=== PATIENT | female | born 1990 | race Caucasian/White ===

== ENCOUNTER 2016-11-20 06:57 | Inpatient (IN) | payer OTHER ==
[2016-11-13 13:09] VITALS: BMI 49.0
--- NOTE | 2016-11-13 13:32 | PAT Medication Instructions ---
Service Date Nov 13, 2016. Current Home Medication List Cholecalciferol (Vitamin D3), 1 TAB PO QAM Citalopram Hydrobromide (Citalopram Hydrobromide), 1 TAB PO HS Insulin Aspart (Novolog), 16 UNITS SQ BREAKFAST AND LUNCH Insulin Aspart (Novolog), 14 UNITS SQ DINNER TIME Insulin Human NPH (Novolin N), 40 UNITS SQ QAM Insulin Human NPH (Novolin N), 18 UNITS SQ HS Metformin Hcl (Glucophage), 1,000 MG PO BID Vit W/ Ferrous Fumara (), 2 TABS PO QAM Medication Instructions For Your Scheduled Surgery - Hold the following medications 48 hours prior to surgery: Metformin Hcl (Glucophage), 1,000 MG PO BID - Hold the following medications the morning of surgery: Vit W/ Ferrous Fumara (), 2 TABS PO QAM Insulin Aspart (Novolog), 16 UNITS SQ BREAKFAST Cholecalciferol (Vitamin D3), 1 TAB PO QAM - Take the following medications as scheduled the night before surgery: Insulin Human NPH (Novolin N), 18 UNITS SQ HS Insulin Aspart (Novolog), 16 UNITS SQ BREAKFAST AND LUNCH Insulin Aspart (Novolog), 14 UNITS SQ DINNER TIME Citalopram Hydrobromide (Citalopram Hydrobromide), 1 TAB PO HS - For Insulin Dependent Diabetic patients: Test blood sugar A.M. of surgery. - If Blood sugar greater than 150, take half of your regular dose of: Insulin Human NPH (Novolin N), take 20 units - If Blood sugar less than 150, do not take any: Insulin Human NPH ( Novolin N) If you have any questions please call us at [phone] (Izabel Negron PA-C ) or [phone] or [phone]
[2016-11-13 14:42] LABS: BASO % 0.3 %; BASO ABS # 0.03 K/uL (0-0.2); COMPLETE YES; EOS % 0.9 %; HEMATOCRIT 35.6 % (37-47); IG% 0.6 %; LYMPH % 17.7 %; LYMPH ABS # 1.84 K/uL (1.2-3.4); MEAN CELL VOLUME 88.6 fL (80-100); MEAN CORPUSCULAR HEMOGLOBIN 29.1 pg (25-34); MEAN CORPUSCULAR HGB CONC 32.9 g/dl (32-36); MEAN PLATELET VOLUME 9.6 fL (7.4-10.4); MONO % 5.2 %; NEUT % 75.3 %; PLATELET COUNT 209 K/uL (130-400); RED BLOOD COUNT 4.02 M/uL (4.2-5.4)
[2016-11-13 15:00] LABS: BUN/CREATININE RATIO 12.3 (10-20); CALCIUM 8.8 mg/dl (8.5-10.1); CREATININE 0.67 mg/dl (0.60-1.20); POTASSIUM 4.2 mmol/L (3.5-5.1)
[2016-11-20] VITALS (9 sets, daily range): BP systolic 127–131; BP diastolic 82–87; PULSE 66–92; TEMP 36.8–37.1; O2SAT 98–100; Ht 160 cm; Wt 125.5 kg
[~2016-11-20] VITALS: Ht 160 cm; Wt 125.5 kg
[~2016-11-20 06:57] MED LIST: CEFAZOLIN IV 3,000 MG in DEXTROSE 5% 50ML IV SCH; CHOL1000 PO; CITA20TA4 PO; CITRIC ACID/SODIUM CITRATE 15 ML UDC PO SCH; GLC/500 PO; LACTATED RINGER'S 1000ML 1,000 ML IV SCH; NVLG SQ; NVLNI SQ; PREN1TAB29 PO
[2016-11-20] MEDS ORDERED: CITA20TA9 PO (09:14)
--- NOTE | 2016-11-20 09:15 | History & Physical Bridge Note ---
H&P Re-Evaluation Bridge Note: I have examined the patient, reviewed the History & Physical and in the interval since the performance of the History & Physical I have noted the following changes of clinical significance: No changes noted
[2016-11-20 09:35] LABS: BASO % 0.2 %; BASO ABS # 0.02 K/uL (0-0.2); EOS % 0.6 %; IG% 0.7 %; LYMPH % 19.6 %; LYMPH ABS # 1.62 K/uL (1.2-3.4); MEAN CELL VOLUME 88.2 fL (80-100); MEAN CORPUSCULAR HEMOGLOBIN 29.7 pg (25-34); MEAN PLATELET VOLUME 9.8 fL (7.4-10.4); MONO % 7.9 %; PLATELET COUNT 202 K/uL (130-400); RED BLOOD COUNT 3.97 M/uL (4.2-5.4); WHITE BLOOD COUNT 8.28 K/uL (4.8-10.8)
[2016-11-20 09:39] LABS: COMPLETE YES; MEAN CORPUSCULAR HGB CONC 33.7 g/dl (32-36)
[2016-11-20] MEDS ORDERED: MoRPHine SULFATE PF 1 MG/ML 10 ML AMP/VIAL ONE (10:05)
[2016-11-20] MEDS ORDERED: OXYTOCIN INJ 10 UNITS/ML VIAL ONE (10:19)
[2016-11-20] MEDS ORDERED: EpHEDrine SULFATE INJ 50 MG/ML AMP ONE (10:19)
[2016-11-20] MEDS ORDERED: NALOXONE HCL INJ 0.08 MG in SYRINGE 1.8 ML IV PRN (10:49)
[2016-11-20] MEDS ORDERED: NALOXONE HCL INJ 1 MG in SODIUM CHLORIDE 0.9% 1000ML 1,000 ML IV PRN (10:49)
[2016-11-20] MEDS ORDERED: SODIUM CHLORIDE 0.9% 1000ML 1,000 ML IV PRN (10:49)
[2016-11-20] MEDS ORDERED: LACTATED RINGER'S 1000ML 500 ML IV PRN (10:49)
[2016-11-20] MEDS ORDERED: DiphenhydrAMINE HCL 50 MG/ML VIAL IV PRN ×2 (11:00)
[2016-11-20] MEDS ORDERED: MoRPHine SULFATE 2 MG/ML CARP IV PRN (11:00)
[2016-11-20] MEDS ORDERED: FENTANYL CITRATE INJ 50 MCG/1 ML 2 ML VIAL IV PRN (11:00)
[2016-11-20] MEDS ORDERED: ONDANSETRON INJ 2 MG/ML 2 ML VIAL IV PRN ×2 (11:00)
[2016-11-20] MEDS ORDERED: NO NARCOTICS OR SEDATIVES SCH (11:00)
[2016-11-20] MEDS ORDERED: ATROPINE SULFATE 0.1 MG/ML 5ML SYR IV PRN (11:00)
[2016-11-20] MEDS ORDERED: MoRPHine SULFATE PF 1 MG/ML 10 ML AMP/VIAL EPI PRN (11:00)
[2016-11-20] MEDS ORDERED: LABETALOL HCL IV 5 MG/ML 20ML IV PRN (11:00)
[2016-11-20] MEDS ORDERED: NALOXONE HCL 0.4 MG/1 ML VIAL/CARP IV PRN (11:00)
[2016-11-20] MEDS ORDERED: HYDROmorphone INJ 1 MG/ML SYR IV PRN (11:00)
[2016-11-20] MEDS ORDERED: EpHEDrine SULFATE INJ 50 MG/ML AMP IV PRN ×2 (11:00)
[2016-11-20] MEDS ORDERED: MEPERIDINE HCL 25 MG/ML CARP IV PRN ×2 (11:00)
[2016-11-20] MEDS ORDERED: NALBUPHINE HCL INJ 10 MG/ML AMP IV PRN (11:00)
[2016-11-20] MEDS ORDERED: PHENYLEPHRINE HCL INJ 10 MG/ML VIAL ONE (11:06)
[2016-11-20] MEDS ORDERED: LACTATED RINGER'S 1000ML 1,000 ML IV SCH (11:21)
--- NOTE | 2016-11-20 11:28 | [facility] Post Operative Brief Note ---
Immediate Operative Summary Operative Date Nov 20, 2016. Pre-Operative Diagnosis Term , hx prior C/S requesting repeat, Type II DM insulin controlled, Class III obesity Post-Operative Diagnosis Same, Repeat Elective Caesarean Section Procedure(s) Performed Repeat Low Transverse Caesarean Section for living female child at [address] Paz Pre K Teacher Surgeon(s) Dr. Zhou Estimated Blood Loss 600 ML Findings Patient delivered a viable female infant in the vertex position at 1030 on via repeat LTCS. APGARs were 8 at 1 minute and 9 at 5 minutes. Please see pediatricians notes for further baby assessment. Cord blood obtained. An intact placenta with a 3 VC delivered manually at 1031. Normal uterus and bilateral tubes and ovaries noted. Both patient and baby tolerated the surgery well and were sent to recovery with stable vital signs. Fluids (cc crystalloids) 1200 Specimens PLACENTA- EXAM CORD BLOOD Drains Gilmore to gravity Anesthesia Spinal Complication(s) None Disposition L&D
[2016-11-20] MEDS ORDERED: MAGNESIUM HYDROXIDE SUSP 30 ML UDC PO PRN (11:30)
[2016-11-20] MEDS ORDERED: SENNA 8.6 MG TAB PO PRN (11:30)
[2016-11-20] MEDS ORDERED: BENZOCAINE 20% AER SPR 82.5 GM CAN EXT PRN (11:30)
[2016-11-20] MEDS ORDERED: LANOLIN OINT EXT PRN ×2 (11:30)
[2016-11-20] MEDS ORDERED: HYDROCORTISONE ACETATE 25 MG SUPP PR PRN (11:30)
[2016-11-20] MEDS ORDERED: SUPERCREAM 0.870 % 15GM JAR EXT PRN (11:30)
[2016-11-20] MEDS ORDERED: DIPHTHERIA/TETANUS/PERTUSSIS 0.5 ML SYR/VIAL IM. ONE (11:30)
[2016-11-20] MEDS: OXYTOCIN INJ 30 UNITS in LACTATED RINGER'S 1000ML 1,000 ML IV SCH ×2 (13:36→22:02)
--- NOTE | 2016-11-20 14:19 | OPERATIVE REPORT ---
DATE OF OPERATION: 11/20/2016 PREOPERATIVE DIAGNOSES: 1. Intrauterine term . 2. History of prior section, requesting repeat section. 3. Type 2 diabetes, insulin controlled. 4. Class 3 obesity. POSTOPERATIVE DIAGNOSES: Same. OPERATIVE PROCEDURE: Repeat low transverse section. SURGEON: Dr. Pasquale Paz. MAINTENANCE TECHNICIAN: Dr. Zhou. ANESTHESIA: Spinal. ESTIMATED BLOOD LOSS: 600 mL. IV FLUIDS: 1200 mL crystalloids. SPECIMENS: Placenta and cord blood. DRAINS: Gilmore to gravity. COMPLICATIONS: None. DISPOSITION: Labor and delivery. OPERATIVE FINDINGS: The patient delivered a viable female infant in the vertex position at 10:30 a.m. on 11/20/2016 via repeat low transverse section. Apgars were 8 at 1 minute and 9 at 5 minutes. Please see optical glass wet inspector's notes for further baby assessment. Cord blood was then obtained and an intact placenta with 3-vessel cord was delivered manually at 10:31. Normal uterus and bilateral tubes and ovaries were noted. Both the patient and baby tolerated the surgery well and were sent to recovery with stable vital signs. OPERATIVE PROCEDURE IN DETAIL: The patient was taken to the operating room, where spinal anesthesia was administered. The patient was then immediately placed in dorsal supine position with a left lateral tilt and was prepped and draped in a manner appropriate for the procedure. Once anesthesia was found to be adequate, a Pfannenstiel skin incision was made over the previous surgical scar and was carried down through to a layer of the rectus fascia. Fascia was nicked in the midline and extended bilaterally with curved Cottrell scissors. The superior aspect of the fascial incision was grasped with Roz clamps, elevated, and the rectus muscles were dissected off with the use of the curved Cottrell scissors and electrocautery. Likewise, this inferior aspect of the fascial incision was grasped with Roz clamps, elevated, and the rectus muscles were dissected off with the use of the curved Cottrell scissors. The rectus muscles were in midline. Peritoneum was entered bluntly. The peritoneal incision was then extended cephalocaudally with gentle traction. An Kishor retractor was then placed within the abdomen. The bladder blade was then placed within the abdomen. The vesicouterine peritoneum was identified and a bladder flap was created with Metzenbaum scissors and digital traction. The bladder flap was then reincorporated beneath the Susan blade. A transverse incision was then made on the uterus and extended bilaterally with bandage scissors. The membranes were then ruptured noting clear amniotic fluid. The baby was then delivered through the incision without complications. Baby was bulb suctioned at delivery. Cord was clamped x2 and cut. Baby was then immediately handed to an awaiting optical glass wet inspector for further evaluation and management. Cord blood was then obtained and an intact placenta with a 3-vessel cord was delivered through the incision and sent to pathology. The uterus was then exteriorized and wrapped in moist laparotomy sponge. The uterus was then cleared of any trailing membrane and debris with a laparotomy sponge. The uterine incision was then grasped with ring forceps at 4 quadrants and was closed with 0 Vicryl suture in continuous locking fashion. A second 0 Vicryl suture was used in imbricating fashion to ensure hemostasis. Any residual bleeding was suture ligated with 0 Vicryl suture in a [id number] interrupted fashion. The posterior cul-de-sac was then irrigated with warm saline solution. The uterus was then placed back within its normal anatomic position within the abdomen. Inspection of the uterine incision was again noted to be hemostatic. The bladder flap was reapproximated to the lower uterine segment with 3-0 Vicryl suture in continuous running fashion. Seprafilm was placed over the incision and along the fundus of the uterus. All instruments were then removed from the abdomen. The Kishor retractor was also removed. The peritoneum was then grasped with Carine clamps and 4 quadrants and was closed with 2-0 Vicryl suture in continuous running fashion. The rectus muscles were reapproximated with 0 Vicryl suture in a [id number] interrupted fashion. The rectus fascia was then closed with 0 Vicryl suture in continuous running fashion. Subcutaneous tissue was reapproximated with 2-0 plain suture in a continuous running fashion. Skin was then closed with ben. Excellent hemostasis was noted through all tissue layers. All sponge and instrument counts were found to be correct x2. Both the patient and baby tolerated the surgery well and were sent to recovery with stable vital signs. I attest to the content of the Intraoperative Record and any orders documented therein. Any exceptio ns are noted below.
--- NOTE | 2016-11-20 15:46 | Anesthesiology Progress Note ---
Anesthesia Post Op Note Date & Time Nov 20, 2016 at 15:44 Vital Signs Pain Intensity: 3.5 Vital Signs Past 12 Hours Date Time Temp Pulse Resp B/P Pulse Ox O2 Delivery O2 Flow Rate FiO2 11/20/16 14:45 98 Room Air 11/20/16 14:45 36.8 67 18 131/84 98 Room Air 11/20/16 14:45 18 98 Notes Mental Status: alert / awake / arousable, participated in evaluation Pt Amnestic to Procedure: Yes Nausea / Vomiting: adequately controlled Pain: adequately controlled Airway Patency, RR, SpO2: stable & adequate BP & HR: stable & adequate Hydration State: stable & adequate Neuraxial Anesthesia: was administered, sensory block is resolving Anesthetic Complications: no major complications apparent
[2016-11-20] MEDS: KETOROLAC TROMETHAMINE 30 MG/ML VIAL IV. PRN ×2 (16:31→22:08)
[2016-11-20] MEDS: METFORMIN HCL 500 MG TAB PO SCH (17:23)
[2016-11-20] MEDS: SIMETHICONE 80 MG CHEW PO SCH ×2 (17:23→19:53)
[2016-11-20] MEDS: DOCUSATE SODIUM 100 MG CAP PO SCH (19:53)
[2016-11-20] MEDS: CITALOPRAM 20 MG TAB PO SCH (22:02)
[2016-11-21] VITALS (7 sets, daily range): BP systolic 120–133; BP diastolic 76–84; PULSE 88–98; TEMP 36.4–36.9; O2SAT 96–100
[2016-11-21] MEDS ORDERED: ZOLPIDEM TARTRATE 5 MG TAB PO PRN (02:15)
[2016-11-21] MEDS ORDERED: ONDANSETRON INJ 2 MG/ML 2 ML VIAL IV PRN (02:15)
[2016-11-21] MEDS ORDERED: KETOROLAC TROMETHAMINE 30 MG/ML VIAL IV. PRN (02:15)
[2016-11-21] MEDS ORDERED: DC INTRASPINAL MORPHINE ONE (02:15)
[2016-11-21] MEDS: IBUPROFEN 600 MG TAB PO PRN ×4 (03:50→22:49)
[2016-11-21] MEDS: OXYCODONE/ACETAMINOPHEN 5-325 TAB PO PRN ×5 (03:51→21:32)
[2016-11-21 06:02] LABS: BASO % 0.2 %; BASO ABS # 0.02 K/uL (0-0.2); COMPLETE YES; EOS % 1.6 %; HEMATOCRIT 26.9 % (37-47); IG% 0.3 %; LYMPH % 16.1 %; LYMPH ABS # 1.42 K/uL (1.2-3.4); MEAN CELL VOLUME 87.9 fL (80-100); MEAN CORPUSCULAR HEMOGLOBIN 29.4 pg (25-34); MEAN CORPUSCULAR HGB CONC 33.5 g/dl (32-36); MEAN PLATELET VOLUME 9.1 fL (7.4-10.4); MONO % 8.9 %; NEUT % 72.9 %; PLATELET COUNT 149 K/uL (130-400); RED BLOOD COUNT 3.06 M/uL (4.2-5.4); WHITE BLOOD COUNT 8.84 K/uL (4.8-10.8)
[2016-11-21] MEDS ORDERED: FERROUS SULFATE 325 MG TAB PO SCH (08:00)
[2016-11-21] MEDS ORDERED: CITALOPRAM 20 MG TAB PO SCH (08:00)
[2016-11-21] MEDS: METFORMIN HCL 500 MG TAB PO SCH ×2 (08:52→17:24)
[2016-11-21] MEDS: PRENATAL VITAMIN TAB PO SCH (08:53)
[2016-11-21] MEDS: SIMETHICONE 80 MG CHEW PO SCH ×4 (08:54→20:25)
[2016-11-21] MEDS: DOCUSATE SODIUM 100 MG CAP PO SCH ×2 (08:54→20:26)
--- NOTE | 2016-11-21 09:21 | OB/GYN Progress Note ---
PETROGRAPHER Progress Note Date of Service: Nov 21, 2016. Patient is seen and examined. She feels well, no complaints. Pain is under control with oral meds. Ambulating without dizziness Voiding without difficulty Tolerating regular diet with out N&V Flatus + BM NEG Bleeding is minimal No fever/ chills/ CP/ SOB/ N&V/ Leg pain Breast feeding without problems Date Time Temp Pulse Resp B/P Pulse Ox O2 Delivery O2 Flow Rate FiO2 11/21/16 08:00 99 Room Air 11/21/16 07:00 36.4 98 20 133/84 99 Room Air 11/21/16 03:30 36.9 88 16 120/76 100 Room Air 11/21/16 02:15 16 97 11/21/16 01:30 16 98 11/21/16 00:30 16 100 11/20/16 23:30 18 100 11/20/16 23:30 100 Room Air 11/20/16 23:30 37.1 92 18 127/82 100 Room Air 11/20/16 22:30 18 98 11/20/16 21:30 18 100 11/20/16 20:30 20 99 11/20/16 19:30 36.9 82 20 131/82 100 Room Air 11/20/16 19:30 20 100 11/20/16 17:05 18 99 11/20/16 16:25 18 100 11/20/16 16:25 36.8 70 20 129/87 100 Room Air 11/20/16 15:25 20 100 11/20/16 15:25 36.8 66 20 128/85 100 Room Air 11/20/16 14:45 98 Room Air 11/20/16 14:45 36.8 67 18 131/84 98 Room Air 11/20/16 14:45 18 98 Test 11/13/16 13:38 11/20/16 07:21 11/20/16 17:07 11/20/16 19:37 White Blood Count 10.40 8.28 Red Blood Count 4.02 L 3.97 L Hemoglobin 11.7 L 11.8 L Hematocrit 35.6 L 35.0 L Mean Corpuscular Volume 88.6 88.2 Mean Corpuscular Hemoglobin 29.1 29.7 Mean Corpuscular Hemoglobin Concent 32.9 33.7 Platelet Count 209 202 Mean Platelet Volume 9.6 9.8 Neutrophils (%) (Auto) 75.3 71.0 Lymphocytes (%) (Auto) 17.7 19.6 Monocytes (%) (Auto) 5.2 7.9 Eosinophils (%) (Auto) 0.9 0.6 Basophils (%) (Auto) 0.3 0.2 Neutrophils # (Auto) 7.84 H 5.88 Lymphocytes # (Auto) 1.84 1.62 Monocytes # (Auto) 0.54 0.65 H Eosinophils # (Auto) 0.09 0.05 Basophils # (Auto) 0.03 0.02 RDW Standard Deviation 49.8 H 49.3 H RDW Coefficient of Variation 15.4 H 15.3 H Immature Granulocyte % (Auto) 0.6 0.7 Immature Granulocyte # (Auto) 0.06 H 0.06 H Sodium Level 138 Potassium Level 4.2 Chloride Level 104 Carbon Dioxide Level 27 Anion Gap 7.0 Blood Urea Nitrogen 8 Creatinine 0.67 Est Creatinine Clear Calc Drug Dose 164.9 Estimated GFR () 140.6 Estimated GFR (Non- 121.3 BUN/Creatinine Ratio 12.3 Random Glucose 113 H Calcium Level 8.8 POC Glucose 85 106 H Test 11/21/16 05:48 White Blood Count 8.84 Red Blood Count 3.06 L Hemoglobin 9.0 L Hematocrit 26.9 L Mean Corpuscular Volume 87.9 Mean Corpuscular Hemoglobin 29.4 Mean Corpuscular Hemoglobin Concent 33.5 Platelet Count 149 Mean Platelet Volume 9.1 Neutrophils (%) (Auto) 72.9 Lymphocytes (%) (Auto) 16.1 Monocytes (%) (Auto) 8.9 Eosinophils (%) (Auto) 1.6 Basophils (%) (Auto) 0.2 Neutrophils # (Auto) 6.44 Lymphocytes # (Auto) 1.42 Monocytes # (Auto) 0.79 H Eosinophils # (Auto) 0.14 Basophils # (Auto) 0.02 RDW Standard Deviation 49.2 H RDW Coefficient of Variation 15.5 H Immature Granulocyte % (Auto) 0.3 Immature Granulocyte # (Auto) 0.03 H PE: General: Alert, orientedx3, NAD CVS: S1S2 RRR Lungs; CTAB Abd: soft, NT, fundus firm, below Umbilicus, obese Dressing: Clean, dry, intact Perineum intact, Lochia rubra minimal Ext; NT, no edema AP: 26 yo s/p C Section, pod# 1 VSS Afebrile doing well FS today Continue routine postop care Encourage ambulation, PO intake, ADA diet All questions were answered
[2016-11-21] MEDS: FERROUS SULFATE 325 MG TAB PO SCH (17:21)
[2016-11-21] MEDS: CITALOPRAM 20 MG TAB PO SCH (21:33)
[2016-11-21] MEDS ORDERED: BISACODYL 5 MG TABEC PO ONE (22:00)
[2016-11-22 00:55] VITALS: BP 144/86; PULSE 118; TEMP 37
[2016-11-22] MEDS: OXYCODONE/ACETAMINOPHEN 5-325 TAB PO PRN ×5 (01:29→20:22)
[2016-11-22 07:30] VITALS: BP 145/84; PULSE 90; TEMP 36.6; O2SAT 98
--- NOTE | 2016-11-22 07:33 | OB/GYN Progress Note ---
CHEMICAL INSPECTOR Progress Note Date of Service Nov 22, 2016. Subjective conversation w/ patient, physical exam Ambulation: ambulating normally Voiding: no voiding problems Passing Gas: Yes Diet Tolerance: Regular Diet Lochia: Small Feeding Type: Breast Feeding Pain: 5/10 Notes: Doing well, no concerns. Pain well controlled. Ambulating without difficulty. Tolerating regular diet, +flatus, -BM. Objective Vital Signs Date Time Temp Pulse Resp B/P Pulse Ox O2 Delivery O2 Flow Rate FiO2 11/22/16 00:55 37.0 118 18 144/86 Room Air 11/22/16 00:55 Room Air 11/21/16 15:55 36.6 90 20 132/83 96 Room Air 11/21/16 15:55 96 Room Air 11/21/16 15:55 36.6 90 20 132/83 96 Room Air 11/21/16 08:00 99 Room Air Physical Exam General Appearance: WELL-APPEARING Respiratory/Chest: chest non-tender, lungs clear Cardiovascular: regular rate, rhythm Abdomen: normal bowel sounds, soft Fundus: Firm Incision Description: Clean, Dry & Intact Extremities: normal range of motion, non-tender, no calf tenderness Laboratory Results Last 24 Hours Test 11/21/16 10:14 11/21/16 12:01 11/21/16 16:54 11/21/16 21:39 Bedside Glucose 200 mg/dl 101 mg/dl 121 mg/dl 159 mg/dl Test 11/22/16 05:51 Hemoglobin 8.4 g/dL Hematocrit 25.0 % Assessment and Plan Post-Op Day Number: 2 Continue Routine Care: -Continue routine postop care -Anticipate D/C home tomorrow AM
[2016-11-22] MEDS: SIMETHICONE 80 MG CHEW PO SCH ×4 (07:51→20:03)
[2016-11-22] MEDS: FERROUS SULFATE 325 MG TAB PO SCH ×2 (07:51→17:45)
[2016-11-22] MEDS: DOCUSATE SODIUM 100 MG CAP PO SCH ×2 (07:51→20:03)
[2016-11-22] MEDS: PRENATAL VITAMIN TAB PO SCH (07:51)
[2016-11-22] MEDS: METFORMIN HCL 500 MG TAB PO SCH ×2 (07:51→17:46)
[2016-11-22] MEDS: IBUPROFEN 600 MG TAB PO PRN ×4 (07:52→20:23)
[2016-11-22] MEDS ORDERED: BISACODYL 10 MG SUPP PR PRN (11:30)
[2016-11-22 16:05] VITALS: BP 123/85; PULSE 90; TEMP 37.2; O2SAT 98
[2016-11-22] MEDS: CITALOPRAM 20 MG TAB PO SCH (22:07)
[2016-11-22 23:00] VITALS: BP 132/80; PULSE 73; TEMP 36.8
[2016-11-23] MEDS: IBUPROFEN 600 MG TAB PO PRN (05:56)
[2016-11-23] MEDS: OXYCODONE/ACETAMINOPHEN 5-325 TAB PO PRN (05:57)
[2016-11-23 07:05] LABS: HEMATOCRIT 25.5 % (37-47); MEAN CELL VOLUME 88.9 fL (80-100); MEAN CORPUSCULAR HEMOGLOBIN 28.9 pg (25-34); MEAN CORPUSCULAR HGB CONC 32.5 g/dl (32-36); PLATELET COUNT 187 K/uL (130-400); RED BLOOD COUNT 2.87 M/uL (4.2-5.4); WHITE BLOOD COUNT 7.56 K/uL (4.8-10.8)
[2016-11-23] MEDS: DOCUSATE SODIUM 100 MG CAP PO SCH (07:46)
[2016-11-23] MEDS: FERROUS SULFATE 325 MG TAB PO SCH (07:46)
[2016-11-23] MEDS: METFORMIN HCL 500 MG TAB PO SCH (07:47)
[2016-11-23] MEDS: PRENATAL VITAMIN TAB PO SCH (07:47)
[2016-11-23] MEDS: SIMETHICONE 80 MG CHEW PO SCH (07:47)
[2016-11-23 07:50] VITALS: BP 135/77; PULSE 91; TEMP 37.1; O2SAT 97
--- NOTE | 2016-11-23 09:21 | OB/GYN Progress Note ---
PURCHASER Progress Note Date of Service: Nov 23, 2016. Patient is seen and examined. She feels well, no complaints. Likes to go home. Pain is under control with oral meds. Ambulating without dizziness Voiding without difficulty Tolerating regular diet with out N&V Flatus + BM + Bleeding is minimal No fever/ chills/ CP/ SOB/ N&V/ Leg pain Breast feeding without problems Date Time Temp Pulse Resp B/P Pulse Ox O2 Delivery O2 Flow Rate FiO2 11/23/16 07:50 37.1 91 18 135/77 97 Room Air 11/23/16 07:50 97 Room Air 11/22/16 23:00 36.8 73 20 132/80 Room Air 11/22/16 23:00 Room Air 11/22/16 16:05 37.2 90 20 123/85 98 Room Air 11/22/16 16:05 98 Room Air Test 11/13/16 13:38 11/20/16 07:21 11/21/16 05:48 11/21/16 12:01 Immature Granulocyte % (Auto) 0.6 0.7 0.3 White Blood Count 10.40 8.28 8.84 Red Blood Count 4.02 L 3.97 L 3.06 L Hemoglobin 11.7 L 11.8 L 9.0 L Hematocrit 35.6 L 35.0 L 26.9 L Mean Corpuscular Volume 88.6 88.2 87.9 Mean Corpuscular Hemoglobin 29.1 29.7 29.4 Mean Corpuscular Hemoglobin Concent 32.9 33.7 33.5 Platelet Count 209 202 149 Mean Platelet Volume 9.6 9.8 9.1 Neutrophils (%) (Auto) 75.3 71.0 72.9 Lymphocytes (%) (Auto) 17.7 19.6 16.1 Monocytes (%) (Auto) 5.2 7.9 8.9 Eosinophils (%) (Auto) 0.9 0.6 1.6 Basophils (%) (Auto) 0.3 0.2 0.2 Neutrophils # (Auto) 7.84 H 5.88 6.44 Lymphocytes # (Auto) 1.84 1.62 1.42 Monocytes # (Auto) 0.54 0.65 H 0.79 H Eosinophils # (Auto) 0.09 0.05 0.14 Basophils # (Auto) 0.03 0.02 0.02 Immature Granulocyte # (Auto) 0.06 H 0.06 H 0.03 H Sodium Level 138 Potassium Level 4.2 Chloride Level 104 Carbon Dioxide Level 27 Anion Gap 7.0 Blood Urea Nitrogen 8 Creatinine 0.67 Est Creatinine Clear Calc Drug Dose 164.9 Estimated GFR () 140.6 Estimated GFR (Non- 121.3 BUN/Creatinine Ratio 12.3 Random Glucose 113 H Calcium Level 8.8 RDW Standard Deviation 49.3 H 49.2 H RDW Coefficient of Variation 15.3 H 15.5 H POC Glucose 101 H Test 11/21/16 16:54 11/21/16 21:39 11/22/16 05:51 11/23/16 06:22 POC Glucose 121 H 159 H Hemoglobin 8.4 L 8.3 L Hematocrit 25.0 L 25.5 L White Blood Count 7.56 Red Blood Count 2.87 L Mean Corpuscular Volume 88.9 Mean Corpuscular Hemoglobin 28.9 Mean Corpuscular Hemoglobin Concent 32.5 RDW Standard Deviation 50.7 H RDW Coefficient of Variation 15.7 H Platelet Count 187 Mean Platelet Volume 9.0 PE: General: Alert, orientedx3, NAD CVS: S1S2 RRR Lungs; CTAB Abd: soft, NT, fundus firm, below Umbilicus Incision: Clean, dry, intact Perineum intact, Lochia rubra minimal Ext; NT, no edema AP: 26 yo s/p RC Section, pod# 3 VSS Afebrile doing well Continue routine postop care Encourage ambulation, PO intake All questions were answered Instructions were given when to call D/C home , f/u in office
[2016-11-23] MEDS ORDERED: CLC100 PO (09:22)
[2016-11-23] MEDS ORDERED: FRRS300 PO (09:22)
[2016-11-23] MEDS ORDERED: OXYC-57 PO (09:22)
[2016-11-23] MEDS ORDERED: MTR600X PO (09:22)
--- NOTE | 2016-11-23 09:24 | Discharge Instructions ---
Discharge Instructions Date of Service Nov 23, 2016. Admission Reason for Admission: Term Discharge Discharge Diagnosis / Problem: Repeat Csection Discharge Goals Goal(s): Routine recovery after Medications Continue Dispensed Medications: lansinoh Activity Recommendations Activity Limitations: as noted below Lifting Limitations: no more than 5 pounds Exercise/Sports Limitations: until after follow-up appointment May Resume Sexual Activity: after follow-up appointment Shower/Bathe: keep incision dry Driving or Machine Use: ACTIVITY RECOMMENDATIONS: * Gradual return to full activity over the next 2-3 weeks. * No lifting - nothing heavier than baby over the next 2-3 weeks. * Do not engage in vigorous exercise, sexual activity or sports until cleared by your physician. * Do not drive or operate any motorized equipment until cleared by your physician. * You may shower/bathe daily. BREAST CARE: If you are not breast feeding: * Wear a supportive bra 24 hours a day for one to two weeks. * Avoid stimulating your breasts and nipples as much as possible during the first few weeks after delivery. * When taking a shower, have the warm water hit your back, not breasts. * When your breasts feel full, apply ice packs. Usually three to four times a day helps ease the discomfort. * Take a mild pain medication (Tylenol/Motrin) when you are uncomfortable. If breast feeding: * Use breast milk to lubricate nipples. Lansinoh cream may be used for sore nipples. You do not need to remove cream prior to breast feeding. If using a different brand of cream, check the label for directions regarding removal of cream prior to nursing. * Wear a supportive bra. * If having problems with breasts or breast feeding, call a freight traffic consultant or your health care provider. OVER THE COUNTER MEDICATION: * For discomfort or pain, you may use Acetaminophen (Tylenol), Ibuprofen (Advil ), or Naproxen (Aleve) following the package directions. * For constipation you may use Colace following the package directions. SPECIAL CARE INSTRUCTIONS: When you are discharged from the hospital, it is important for you to follow the instructions listed below: * During the first week at home, you should be able to care for yourself and your baby. In addition, the usual light household activities are encouraged. * Limit your activities to the way you feel. Do not try to clean the house or move furniture. Be sensible. * If you actively engage in sports and have done so up until the time of your delivery, you may resume these activities as soon as you feel able. This may take up to one month or even longer. Use good judgment. * Continue to take your vitamins for at least six weeks after the of your baby. * Your diet need not be limited unless you were on a special diet before your delivery. Breast-feeding mothers need around 2500 calories per day and at least 64-80 ounces of fluid per day (8 to 10 glasses). * You should eat foods from the four major food groups. Crash diets or fad diets are to be avoided. Eating lean meats, fresh fruits and vegetables, low-fat dairy products, high fiber foods and a regular exercise program, will help you get back to your pre- weight without putting your health at risk. * Constipation is sometimes a problem after delivery. Take a mild laxative as needed. If breast feeding, Milk of Magnesia is acceptable to use. You may use a suppository or Fleets enema if no episiotomy. * A daily shower or tub bath is suggested. Be sure to thoroughly and gently dry the perineum. * A bloody vaginal discharge will usually continue until around four weeks post . A small amount of bleeding may continue for as long as six weeks. Vaginal discharge changes from the bright red bleeding after delivery to pink then brownish and finally yellowish-pink before becoming white and disappearing. * Bleeding may increase with activity. Your first period may come in 4-8 weeks. If you are breast feeding, your period may be delayed even longer. * [place] (sex) can begin whenever both you and your partner feel comfortable and do not have any form of genital infection. It is recommended that you wait at least six weeks for internal and external healing to occur. If you have questions, please talk to your health care practitioner. A condom should be used to prevent infection and . * Foreplay, gentle intercourse and lubrication is very important the first several times to prevent pain. A water-based lubricant such as K-Y jelly or Astroglide may be used. * Tampons and/or Douching should be avoided until after six weeks check-up. * If you have RH negative blood and your baby is RH positive, you will receive RHOGAM by injection prior to discharge. The nurse will give you a card to keep with you that has the date and place that you received RHOGAM after delivery. * During your care, you had a Rubella screen done to check for the presence of rubella antibodies in your blood. If your test was negative, you will receive a Rubella vaccine prior to discharge. This vaccine may cause a fever, soreness at the injection site and flu-like symptoms. If these symptoms persist, notify your health care practitioner. is not advised for three months after a Rubella vaccine. * Verbalizes understanding of car seat law as reviewed with patient nursing. * Car Seat hand-out given and reviewed with patient by nursing. * Shaken baby information reviewed with patient by nursing. Call you doctor if: * Heavy bleeding (saturating several pads an hour) or passing clots the size of your fist. * A fever >101 degrees F (38.3 degrees C) on two occasions four hours apart and /or chills. * Unusual pain in the pelvic or vaginal areas. Pain should improve each day . * Call the doctor for any increased redness, drainage or swelling around the incision and any pain unrelieved by prescribed pain medication. * Any signs or symptoms of phlebitis (possible blood clots forming in the veins ): leg pain, warm, red or swollen area on leg. * "Baby Blues" lasting longer than two weeks. If you have any questions or concerns, call your health care practitioner at . FOLLOW-UP VISIT: * Incision check (staple removal) in 1 week. Please call doctor's office at to set up appointment. * Please call the office at to schedule a 6 week examination. It is important you keep this appointment. * It is important for you to make arrangements for either yearly or twice yearly check-ups thereafter. . Current Hospital Diet Patient's current hospital diet: Diabetes Type 2 Diet Discharge Diet Recommended Diet: Diabetes Type 2 Diet Procedures Procedures Performed: Repeat Low Transverse Caesarean Section for living female child at 1030 Pending Studies Studies pending at discharge: no Medical Emergencies . Who to Call and When: Medical Emergencies: If at any time you feel your situation is an emergency, please call 911 immediately. . Non-Emergent Contact Non-Emergency issues call your: Primary Care Provider (with glucose levels ), Surgeon Call Non-Emergent contact if: temperature is above 100.5, your pain is not controlled, your pain is worsening, wound has increased drainage, wound has increased redness, wound has increased pain, you have any medication questions . . "Provider Documentation" section prepared by Richi Mckoy. . VTE Core Measure Inpt VTE Proph given/why not?: Treatment not indicated
[2016-11-23] MEDS ORDERED: MISC-696 (09:25)
[2016-11-23 11:30] VITALS: BP_DIAS 77; PULSE 91; TEMP 37.1
== END 2016-11-23 11:50 | disposition home or self-care (01) | DRG 765 ==
LOC: C.LD 06:57 → EDSTATUS 07:30 → C.OBG 14:23
PROVIDERS: ADMIT Obstetrics & Gynecology; ATTEND Obstetrics & Gynecology
PROC: 10D00Z1 Extraction of Products of Conception, Low, Open Approach (ICD-10-PCS; principal; 2016-11-20 09:00)
DX: O34.211 Maternal care for low transverse scar from previous cesarean delivery (principal); O24.12 Pre-existing type 2 diabetes mellitus, in childbirth; Z68.42 Body mass index [BMI] 45.0-49.9, adult; Z37.0 Single live birth; Z3A.39 39 weeks gestation of pregnancy; O99.214 Obesity complicating childbirth; O99.344 Other mental disorders complicating childbirth; F32.9 Major depressive disorder, single episode, unspecified; Z86.718 Personal history of other venous thrombosis and embolism; Z79.899 Other long term (current) drug therapy; Z87.891 Personal history of nicotine dependence; Z90.49 Acquired absence of other specified parts of digestive tract; Z82.49 Family history of ischemic heart disease and other diseases of the circulatory system; Z83.6 Family history of other diseases of the respiratory system; Z80.9 Family history of malignant neoplasm, unspecified; Z82.61 Family history of arthritis; Z82.5 Family history of asthma and other chronic lower respiratory diseases

== ENCOUNTER 2017-05-02 19:23 | Emergency (ER) | payer OTHER ==
[~2017-05-02] VITALS: Ht 160 cm; Wt 130.4 kg
[~2017-05-02 19:23] MED LIST changes: -CEFAZOLIN IV 3,000 MG in DEXTROSE 5% 50ML IV SCH; -CITRIC ACID/SODIUM CITRATE 15 ML UDC PO SCH; +CLC100 PO; +FRRS300 PO; -LACTATED RINGER'S 1000ML 1,000 ML IV SCH; +MISC-696; +MTR600X PO; -NVLG SQ; -NVLNI SQ; +OXYC-57 PO
[2017-05-02 19:27] VITALS: TEMP 36.7; Ht 160 cm; Wt 130.4 kg
[2017-05-02] MEDS ORDERED: CYCLOBENZAPRINE HCL 10 MG TAB PO STA (19:48)
[2017-05-02] MEDS ORDERED: IBUPROFEN 200 MG TAB PO STA (19:48)
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
[2017-05-02] MEDS ORDERED: CITA40TA4 PO (20:04)
--- NOTE | 2017-05-02 20:47 | DIAGNOSTIC IMAGING REPORT ---
LEFT HIP 2 VIEWS HISTORY: L hip pain bending over twisting motion COMPARISON: None. FINDINGS: No acute fracture or dislocation within the left hip. There are sacral screws and a left femoral intramedullary kin. The hardware appears intact. Old, healed left pubic ring fractures. An intrauterine device is identified in the pelvis. Extensive callus formation/heterotopic ossification at the mid shaft of left femur consistent with an old, healed fracture. Focal defect within the left lateral thigh consistent with an old injury. IMPRESSION: No acute fracture or dislocation within the left hip. Old posttraumatic and postoperative changes as described above. Electronically signed by: Billy Ca M.D. 05/02/2017 8:46 PM Dictated Date/Time: 05/02/2017 8:44 PM
--- NOTE | 2017-05-02 20:49 | DIAGNOSTIC IMAGING REPORT ---
LUMBAR SPINE 5 VIEWS HISTORY: lower back pain down L leg COMPARISON: None. FINDINGS: There is no fracture. No subluxation. Disc spaces are preserved. There are 2 sacral screws. The hardware appears intact. An intrauterine device is noted. There are surgical clips along the right side of the lower lumbar spine. IMPRESSION: No acute fracture or subluxation within the lumbar spine. Electronically signed by: Billy Ca M.D. 05/02/2017 8:48 PM Dictated Date/Time: 05/02/2017 8:46 PM
[2017-05-02] MEDS ORDERED: CYCL10TA6 PO (21:13)
[2017-05-02] MEDS ORDERED: TRAM-10 PO (21:13)
[2017-05-02 21:25] VITALS: BP 130/89; PULSE 66; O2SAT 99
--- NOTE | 2017-05-03 16:03 | Pharmacy Progress Note ---
ED Pharmacist Progress Note Date of Service: May 03, 2017. Keron called from [facility] wanted to know if provider is OK with giving cyclobenzaprine + tramadol + citalopram. Unfortunately Susana is not here. Pharmacist was afraid that cyclobenzaprine + celexa would lead to excessive QT prolongation. I consulted the reference [employer] however and cyclobenzaprine was not listed as a QT prolonging agent. I advised the pharmacist that I would be more concerned about serotonin syndrome w/ this drug combination. Advised to trauma counsellor the patient to use cyclobenzaprine sparingly and not in combo with the tramadol. Watch for s/s of serotonin syndrome ( confusion, sweating, increased HR, muscle spasms, etc). If one PRN medication is not relieving the symptoms, try the other.
== END 2017-05-02 21:29 | disposition home or self-care (01) ==
LOC: C.EDB 19:24 → C.EDD 21:29
DX: M54.16 Radiculopathy, lumbar region (principal); I10 Essential (primary) hypertension; E66.9 Obesity, unspecified; N83.209 Unspecified ovarian cyst, unspecified side; Z87.891 Personal history of nicotine dependence

== ENCOUNTER 2017-08-22 04:03 | Emergency (ER) | payer OTHER ==
[~2017-08-22] VITALS: Ht 160 cm; Wt 132.7 kg
[~2017-08-22 04:03] MED LIST changes: -CHOL1000 PO; -CITA20TA4 PO; +CITA40TA4 PO; -CLC100 PO; -FRRS300 PO; -GLC/500 PO; -MISC-696; -MTR600X PO; -OXYC-57 PO; -PREN1TAB29 PO
[2017-08-22 04:09] VITALS: BP 168/98; PULSE 69; TEMP 36.5; O2SAT 99; Ht 160 cm; Wt 132.7 kg
[2017-08-22] MEDS ORDERED: AMOXICILLIN 250 MG CAP PO STA (04:13)
[2017-08-22] MEDS ORDERED: IBUPROFEN 600 MG TAB PO STA (04:13)
[2017-08-22] MEDS ORDERED: AMOX500C3 PO (04:17)
--- NOTE | 2017-08-22 04:19 | EMERGENCY ROOM VISIT NOTE ---
History First contact with patient: 04:12 Chief Complaint: EAR PAIN Stated Complaint: REALLY BAD EAR ACHE,CONGESTION,PRESSURE History of Present Illness The patient is a 27 year old female who presents to the Emergency Room with complaints of complaints of cold symptoms for the past several days developed right ear pain tonight. Patient denies fever, chills, headache, neck stiffness , abdominal pain, chest pain, dyspnea, lightheadedness or dizziness. No recent antibiotics. Review of Systems See HPI for pertinent positives & negatives. A total of 10 systems reviewed and were otherwise negative. Past Medical/Surgical History Medical Problems: (1) Acute pharyngitis (2) Appendicitis (3) HTN (hypertension) (4) Hyperglycemia (5) OBESITY, NOS (6) Ovarian cyst (7) Post-op pain (8) Pre-diabetes (9) labor (10) TOBACCO USE DISORDER Surgical Problems: (1) Femur fracture, left (2) History of appendectomy (3) Pelvic fracture Family History Diabetes mellitus Hypertension Lung disease Social History Smoking Status: Never Smoker Alcohol Use: occasionally Drug Use: none Marital Status: in relationship Housing Status: lives with family Occupation Status: unemployed Current/Historical Medications Scheduled Amoxicillin (Amoxil), 500 MG PO TID Citalopram (Citalopram Hydrobromide), 40 MG PO DAILY Physical Exam Vital Signs Date Time Temp Pulse Resp B/P (MAP) Pulse Ox O2 Delivery O2 Flow Rate FiO2 08/22/17 04:09 36.5 69 18 168/98 99 Room Air Physical Exam VITALS: Vitals are noted on the nurse's note and reviewed by myself. Vital signs hypertensive GENERAL: Pleasant female, in no acute distress, nondiaphoretic, well-developed well-nourished. SKIN: The skin was without rashes, erythema, edema, or bruising. There is no tenting of the skin. Capillary reflex less than 2 seconds. HEAD: Normocephalic atraumatic. EARS: Right tympanic membrane bulging consistent with otitis media, left ear External auditory canals clear, with ear tube present without erythema or effusion, no mastoid tenderness bilaterally. EYES: Pupils equal round and reactive to light and accommodation. Conjunctivae without injection, sclerae without icterus. Extraocular movements intact. NOSE: Patent, turbinates without inflammation or discharge. No sinus tenderness. MOUTH: Mucous membranes moist. Pharynx without erythema or exudate. Uvula midline. Airway patent. Tongue does not deviate. NECK: Supple without nuchal rigidity. No lymphadenopathy. No thyromegaly. Cervical spine is nontender. No JVD. No meningeal signs HEART: Regular rate and rhythm without murmurs gallops or rubs. LUNGS: Clear to auscultation bilaterally without wheezes, rales or rhonchi. No dullness to percussion. No retractions or accessory muscle use. ABDOMEN: Positive bowel sounds x 4. Normal tympanic percussion. Soft, nontender, without masses or organomegaly. Navarro sign negative. No guarding or rebound tenderness. MUSCULOSKELETAL: No muscle atrophy, erythema, or edema noted. NEURO: Patient was alert and oriented to person place and time. Normal sensation to light and sharp touch. No focal neurological deficits. Medical Decision & Procedures ED Course Prior records/ancillary studies reviewed. Triage Nursing notes reviewed. Additional history obtained from friend The patient's history was concerning for cold symptoms and ear pain. Differential diagnosis: Etiologies such as viral syndrome, tonsillitis, streptococcal pharyngitis, mononucleosis, TMJ, otitis, pneumonia, influenza, as well as others were entertained. ER treatment provided: Amoxicillin, home pack of OxyIR On reassessment the patient felt better. Diagnostics interpreted by me: Deferred This appears to be consistent with right otitis media. Patient had no signs of meningitis or mastoiditis. She is well-appearing. She is tolerating fluids. She is advised to take medications as directed, rest, stay well-hydrated and follow-up family care in a few days or here in the ER sooner for high fevers, lethargy, neck stiffness, worsening signs or symptoms or as needed. By the evaluation outlined above emergent etiologies such as peritonsillar abscess, retropharyngeal abscess, pneumonia, meningitis, urinary tract infection, sepsis , bacteremia, as well as others were deemed relatively unlikely. The pt informed about the findings as listed above. All questions were answered and pleased with the treatment. Return instructions were outlined and the patient was discharged in stable condition. Outpatient prescription management: Amoxicillin Referral: The patient was referred back to their primary care physician for follow-up in 2 to 3 days for a recheck of the current condition. Medical Decision As above Medication Reconcilliation Current Medication List: was personally reviewed by me Blood Pressure Screening Patient's blood pressure: Elevated blood pressure Blood pressure disposition: Elevated BP felt to be situational Impression Primary Impression: Otitis media Departure Information Dispostion Home / Self-Care Condition GOOD Prescriptions Amoxicillin (AMOXIL) 500 Mg Cap 500 MG PO TID for 10 Days, #30 CAP Prov: Gunjan Nuno .MELO 08/22/17 Forms WORK / SCHOOL INSTRUCTIONS, HOME CARE DOCUMENTATION FORM, IMPORTANT VISIT INFORMATION Patient Instructions My [facility], ED Otitis Media Acute Adult Additional Instructions Amoxicillin 500mg: Take one pill 3 times for 10 days for your infection. All antibiotics can cause diarrhea. If this occurs and you feel worse or it does not resolve in 1-2 days follow up with your doctor or return to the Emergency Department as this could be signs of serious underlying problems. Any medication can cause an allergic reaction, stop the pills immediately and return to the ER for rash, hives, breathing difficulties, or swelling. Acetaminophen(Tylenol) may be used for fever or pain. Use 1000mg every six hours as needed. Avoid using more than 3000mg in a 24 hour period. (AND/OR) Ibuprofen(Motrin, Advil) may be used for fever or pain. Use 600mg every six hours as needed. Take with food. Avoid using more than 2400mg in a 24 hour period. Do not use 2400mg per day for more than three consecutive days without physician direction. Prolonged inappropriate use can lead to stomach upset or ulcers. Afrin nasal spray: 2-3 sprays to each nostril twice daily as needed for congestion. Do not use for more than 3-4 days because it can lead to worsening rebound congestion. Pseudoephedrine(Sudaphed): 30-60mg every 6 hours as needed for nasal congestion. Do not take this with other stimulant products or supplements. Rest and drink plenty of fluids. Controlling your fever with Tylenol and Ibuprofen as above will make you feel better. Wash your hands after nose blowing, sneezing, or coughing. Most germs are spread through contact, therefore improper hygiene may result in your close contacts and loved ones becoming ill just like you. Continue current medications. Return to the ER for severe headache, neck stiffness, chest pain, difficulty breathing, fevers, vomiting, worsening of your condition, or as needed. Follow up with your primary physician this week for a recheck of your current condition. Problem Qualifiers Primary Impression: Otitis media Otitis media type: suppurative Chronicity: acute Laterality: right Recurrence: not specified as recurrent Spontaneous tympanic membrane rupture: without spontaneous rupture Qualified Codes: H66.001 - Acute suppurative otitis media without spontaneous rupture of ear drum, right ear
== END 2017-08-22 04:35 | disposition home or self-care (01) ==
LOC: C.EDB 04:04 → C.EDA 04:35
DX: H66.001 Acute suppurative otitis media without spontaneous rupture of ear drum, right ear (principal); I10 Essential (primary) hypertension; E66.9 Obesity, unspecified; R73.03 Prediabetes; Z83.3 Family history of diabetes mellitus

== ENCOUNTER 2017-10-13 03:46 | Emergency (ER) | payer OTHER ==
[~2017-10-13] VITALS: Ht 160 cm; Wt 134.0 kg
[2017-10-13 03:53] VITALS: TEMP 36.8; Ht 160 cm; Wt 134.0 kg
[2017-10-13 05:50] VITALS: BP 147/83; PULSE 77; O2SAT 97
--- NOTE | 2017-10-13 06:17 | DIAGNOSTIC IMAGING REPORT ---
PELVIC COMPLETE NON OB HISTORY: 27 years-old Female mid cycle bleeding acute vaginal bleeding COMPARISON: Pelvic ultrasound 07/26/2016 TECHNIQUE: Multiple real-time sonographic images of the deep structures were obtained transabdominally and transvaginally assessing grayscale appearance, color and spectral flow FINDINGS: TRANSABDOMINAL: Anteflexed uterus measures 7.9 x 3.9 x 5.6 cm. Endometrium is seen within the endometrial canal within the fundal and mid portions of the uterus which appears to be in appropriate positioning. No myometrial mass lesions are identified. Endometrium measures 0.5 cm. Lesion of the left ovary is noted. TRANSVAGINAL: Mild free pelvic fluid. Endometrium appears unremarkable, 0.6 cm. Left ovary measures 4.3 x 2.8 x 3.2 cm. There is a centrally cystic complex lesion of the left ovary measuring up to 3.4 x 2.8 x 2.0 cm with peripheral vascularity. Arterial inflow is seen within the left ovary. The right ovary measures 2.2 x 1.7 x 1.7 cm and is within normal limits with arterial inflow documented. IMPRESSION: 1. Mildly complex 3.4 cm left ovarian cyst. No evidence of ovarian torsion. 2. IUD in situ. 3. Unremarkable sonographic appearance of the right ovary. 4. Mild free pelvic fluid, likely physiologic. The above report was generated using voice recognition software. It may contain grammatical, syntax or spelling errors. Electronically signed by: Renny Stahl M.D. 10/13/2017 6:16 AM Dictated Date/Time: 10/13/2017 6:12 AM
--- NOTE | 2017-10-13 06:28 | EMERGENCY ROOM VISIT NOTE ---
History Report prepared by [place]: Kate Ibanez Under the Supervision of: Dr. Grace Hill D.O. First contact with patient: 04:05 Chief Complaint: ED VAG BLEEDING Stated Complaint: DISCOMFORT IN LWR VAGINAL AREA AND BLEEDING History of Present Illness The patient is a 27 year old female who presents to the Emergency Room with complaints of an episode of vaginal bleeding occurring last night. The patient states that she noticed vaginal discomfort yesterday. She reports that she doesn 't think they are period cramps. She reports that she went to the bathroom and had a little blood. She states that she went to the bathroom an hour ago and there was a lot of blood with blood clots. The patient states that she just had her period two weeks ago and states that she does not think it could be from that. She reports that she has an IUD and is nervous maybe there is something wrong with it. She notes that she did have sexual intercourse two days ago with her fiance, but denies any discomfort with sex or right after. The patient complains of nausea. The patient denies vomiting, fevers, chills, leg cramping, and leg swelling. Source of History: patient Onset: last night Position: other (vagina) Quality: other (bleeding) Timing: other (episode) Associated Symptoms: + nausea, No fevers, No chills, No vomiting Note: The patient denies leg cramping and leg swelling. Review of Systems See HPI for pertinent positives & negatives. A total of 10 systems reviewed and were otherwise negative. Past Medical & Surgical Medical Problems: (1) Acute pharyngitis (2) Appendicitis (3) HTN (hypertension) (4) Hyperglycemia (5) OBESITY, NOS (6) Ovarian cyst (7) Post-op pain (8) Pre-diabetes (9) labor (10) TOBACCO USE DISORDER Surgical Problems: (1) Femur fracture, left (2) History of appendectomy (3) Pelvic fracture Family History Diabetes mellitus Hypertension Lung disease Social History Smoking Status: Former Smoker Alcohol Use: occasionally Drug Use: none Marital Status: in relationship Housing Status: lives with family Occupation Status: unemployed Allergies Coded Allergies: No Known Allergies (Unverified , 08/22/17) Physical Exam Vital Signs Date Time Temp Pulse Resp B/P (MAP) Pulse Ox O2 Delivery O2 Flow Rate FiO2 10/13/17 05:50 77 16 147/83 97 Room Air 10/13/17 03:53 36.8 85 16 151/90 98 Room Air Physical Exam HEENT: Head - normocephalic and atraumatic Pupils are equal, round, and reactive to light. Extraocular eye muscles are intact, and sclera are anicteric. Nose - moist nasal mucosa without discharge. Mouth - moist buccal mucosa. Oropharynx is nonerythematous and there is no tonsillar exudate or edema noted. Neck: Supple; no JVD, nuchal rigidity, cervical lymphadenopathy. Heart: Regular rate and rhythm. There is a normal S1 and S2 with no murmurs, clicks, or gallops appreciated. Lungs: Clear to auscultation bilaterally with no wheezes, rales, or rhonchi. Abdomen: Soft, completely nontender, nondistended, with good bowel sounds. There are no palpable pulsatile masses or hepatosplenomegaly. There is no guarding, rigidity, or rebound noted. Extremities: No evidence of cyanosis, clubbing, or edema. There are easily palpable peripheral pulses. Skin: warm and dry with good turgor and no rashes. Medical Decision & Procedures ER Provider Diagnostic Interpretation: Radiology results as stated below per my review and the radiologist's interpretation: US PELVIC/ENDOVAG: Trace free fluid in the cul-de-sac. IUD is seen within the endometrial canal. Bilateral ovaries are seen with appropriate blood flow. Hemorrhagic cyst in the left ovary measuring up to 3.4 cm with retracted clot. Radiologist: Sudha Chanel MD Study ready at 05:48 and initial results transmitted at 05:58. Laboratory Results Test 10/13/17 04:27 Urine Test NEG (NEG) Laboratory results per my review. ED Course 0420: Past medical records reviewed. The patient was evaluated in room B6. A complete history and physical exam was performed. The patient went for a pelvic ultrasound as described above. 0609: Upon reevaluation, the patient is resting comfortably. I discussed findings and results with her. She verbalized agreement of the treatment plan. The patient was discharged home. Medical Decision The patient is a 27 year old female who presents to the Emergency Room with complaints of an episode of vaginal bleeding occurring last night. Differential diagnoses include displaced IUD, , dysfunctional uterine bleeding, Mittelschmerz. Lab: Negative This is a 27-year-old female patient who presents to the emergency department after some vaginal bleeding. The patient is in the middle of her menstrual cycle. She began to have some pelvic discomfort and vaginal pain then noticed some vaginal bleeding. Her usual period ended approximately 2 weeks ago. She has an IUD and denies . Ultrasound was fairly unremarkable. I reviewed the results with her. She will follow-up with gynecology on Saturday. She was told return to the emergency department if she had worsening pelvic pain or vaginal bleeding. Medication Reconcilliation Current Medication List: was personally reviewed by me Blood Pressure Screening Patient's blood pressure: Elevated blood pressure Blood pressure disposition: Elevated BP felt to be situational Impression Primary Impression: Abnormal uterine bleeding Scribe Attestation The scribe's documentation has been prepared under my direction and personally reviewed by me in its entirety. I confirm that the note above accurately reflects all work, treatment, procedures, and medical decision making performed by me. Departure Information Dispostion Home / Self-Care Referrals Idalmis Howell PA-C (PCP) Forms HOME CARE DOCUMENTATION FORM, IMPORTANT VISIT INFORMATION, WORK / SCHOOL INSTRUCTIONS Patient Instructions My [facility] [employer] Installs Additional Instructions Rest. Nothing in the vagina for next 2-3 days Follow up with gynecology on Saturday
== END 2017-10-13 06:33 | disposition home or self-care (01) ==
LOC: C.EDB 03:47
DX: N93.9 Abnormal uterine and vaginal bleeding, unspecified (principal); I10 Essential (primary) hypertension; E66.9 Obesity, unspecified; Z90.49 Acquired absence of other specified parts of digestive tract; Z87.891 Personal history of nicotine dependence; Z87.81 Personal history of (healed) traumatic fracture; Z87.51 Personal history of pre-term labor; Z83.3 Family history of diabetes mellitus; Z82.49 Family history of ischemic heart disease and other diseases of the circulatory system; Z83.6 Family history of other diseases of the respiratory system

== ENCOUNTER 2018-03-06 19:47 | Emergency (ER) | payer OTHER ==
[~2018-03-06] VITALS: Ht 160 cm; Wt 137.0 kg
[2018-03-06 19:49] VITALS: TEMP 37.1; Ht 160 cm; Wt 137.0 kg
[2018-03-06] MEDS ORDERED: NAPROXEN 250 MG TAB PO STA (20:10)
--- NOTE | 2018-03-06 21:17 | DIAGNOSTIC IMAGING REPORT ---
LEFT FEMUR 3 VIEWS CLINICAL HISTORY: Left leg pain. FINDINGS: AP, frog-leg, and crosstable lateral views of the left femur are correlated with radiographs of left hip dated 05/02/2017. The skeletal structures are osteopenic. There is chronic posttraumatic deformity of the mid femoral shaft with significant bony overgrowth/heterotopic bone formation. An intramedullary nail is in place. The orthopedic hardware appears intact. No acute fracture is identified. The hip and knee joints appear maintained. Chronic posttraumatic deformity is also seen in the left bony pelvis. Postoperative change partially visualized involving the left sacroiliac joint. An intrauterine device is noted in the pelvis. The soft tissues of the thigh are normal as imaged. IMPRESSION: 1. No acute bony abnormality is identified involving the left femur. 2. Osteopenia with chronic posttraumatic and postoperative change involving the bony pelvis and left femur as above. Dictated: 03/06/2018 9:08 PM Transcribed: 03/06/2018 9:17 PM Brian Electronically signed by: Doe Russell M.D. 03/06/2018 9:19 PM Dictated Date/Time: 03/06/2018 9:08 PM
[2018-03-06] MEDS ORDERED: TRAMADOL HCL 50 MG HOME PACK PO ONE (22:00)
[2018-03-06 22:42] VITALS: BP 150/90; PULSE 89; O2SAT 97
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
== END 2018-03-06 22:30 | disposition home or self-care (01) ==
LOC: C.EDB 19:48 → C.EDA 22:30
DX: M25.552 Pain in left hip (principal); Z97.5 Presence of (intrauterine) contraceptive device; Z90.49 Acquired absence of other specified parts of digestive tract; I10 Essential (primary) hypertension; E66.9 Obesity, unspecified; R73.03 Prediabetes; Z83.3 Family history of diabetes mellitus; Z82.49 Family history of ischemic heart disease and other diseases of the circulatory system

== ENCOUNTER 2022-05-23 05:22 | Inpatient (IN) ==
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
[2022-05-23] MEDS ORDERED: SODIUM CHLORIDE 0.9% 250 ML IV PRN (05:23)
[2022-05-23] MEDS ORDERED: LACTATED RINGER'S 1,000 ML IV SCH ×2 (05:30→10:00)
[2022-05-23 05:57] LABS: Basophils # (auto) 0.04 K/uL (0-0.2); Basophils % (auto) 0.5 %; Eosinophils # (auto) 0.06 K/uL (0-0.50); Eosinophils % (auto) 0.7 %; Hematocrit (blood only) 35.3 % (34.1-44.9); Hemoglobin 12.3 g/dl (12.0-16.0); Immature Granulocytes # (auto) 0.05 K/uL (0.00-0.02); Immature Granulocytes % (auto) 0.6 %; Lymphocytes # (auto) 1.86 K/uL (1.2-3.4); Lymphocytes % (auto) 21.2 %; Mean Corpuscular Hemoglobin 29.9 pg (25.0-34.0); Mean Corpuscular Hgb Conc 34.8 g/dL (32.0-36.0); Mean Corpuscular Volume 85.9 fL (80.0-100.0); Mean Platelet Volume 10.1 fL (9.4-12.3); Monocytes # (auto) 0.58 K/uL (0.24-0.82); Monocytes % (auto) 6.6 %; Neutrophils # (auto) 6.17 K/uL (1.4-6.5); Neutrophils % (auto) 70.4 %; Platelet Count 225 K/uL (130-400); RDW Coefficient of Variation 14.7 % (11.5-14.5); RDW Standard Deviation 45.2 fL (36.4-46.3); Red Blood Count 4.11 M/uL (3.93-5.22); White Blood Count 8.76 K/ul (4.8-10.8)
[2022-05-23] MEDS ORDERED: CITRIC ACID/SODIUM CITRATE 15 ML UDC PO SCH (06:00)
[2022-05-23] MEDS ORDERED: MoRPHine SULFATE PF 1 MG/ML 10 ML AMP/VIAL ONE (07:25)
--- NOTE | 2022-05-23 07:31 | History & Physical Bridge Note ---
Date of Service May 23, 2022 History & Physical Bridge Note I have examined the patient, reviewed the History & Physical and in the interval since the performance of the History & Physical I have noted the following changes of clinical significance: no changes noted Signed an informed consent.
[2022-05-23] MEDS ORDERED: DEXTROSE 5% 1,000 ML IV PRN (07:39)
[2022-05-23] MEDS ORDERED: SODIUM CHLORIDE 0.9% 1000ML 1,000 ML IV PRN (07:39)
[2022-05-23] MEDS ORDERED: DEXTROSE 50% 50 ML SYRINGE IV PRN (07:39)
[2022-05-23] MEDS ORDERED: HYDROmorphone INJ 0.5 MG/0.5 ML SYR IV PRN (07:40)
[2022-05-23] MEDS ORDERED: NALOXONE HCL 0.08 MG in SYRINGE 1.8 ML IV PRN (07:40)
[2022-05-23] MEDS ORDERED: ePHEDrine sulfate 50 MG/ML AMP IV PRN (07:40)
[2022-05-23] MEDS ORDERED: LACTATED RINGER'S 500 ML IV PRN (07:40)
[2022-05-23] MEDS ORDERED: diphenhydrAMINE 50 MG/ML VIAL IV PRN (07:40)
[2022-05-23] MEDS ORDERED: ONDANSETRON INJ 2 MG/ML 2 ML VIAL IV PRN (07:40)
[2022-05-23] MEDS ORDERED: NALOXONE HCL 1 MG in SODIUM CHLORIDE 0.9% 1000ML 1,000 ML IV PRN (07:40)
[2022-05-23] MEDS ORDERED: NALOXONE HCL 0.4 MG/1 ML VIAL/CARP IV PRN (07:40)
[2022-05-23] MEDS ORDERED: PROMETHAZINE HCL 25 MG in SODIUM CHLORIDE 0.9% 50 ML IV PRN (07:40)
[2022-05-23] MEDS ORDERED: NALBUPHINE HCL INJ 10 MG/ML AMP IV PRN (07:40)
[2022-05-23] MEDS ORDERED: MoRPHine SULFATE PF 1 MG/ML 10 ML AMP/VIAL INT SPINAL ONE (07:40)
[2022-05-23] MEDS ORDERED: MoRPHine SULFATE 2 MG/ML CARP IV PRN (07:40)
[2022-05-23] MEDS ORDERED: SODIUM CHLORIDE 0.9% 1000ML 1,000 ML IV SCH (07:45)
[2022-05-23] MEDS ORDERED: NO NARCOTICS OR SEDATIVES SCH (07:45)
[2022-05-23] MEDS ORDERED: DC INTRASPINAL MORPHINE SCH (07:45)
[2022-05-23] MEDS ORDERED: INSULIN REGULAR 250 UNITS in SODIUM CHLORIDE 0.9% 247.5 ML IV PRN (07:56)
[2022-05-23] MEDS ORDERED: OXYTOCIN 10 UNITS/ML 10ML VIAL ONE (09:31)
[2022-05-23] MEDS ORDERED: SUCCINYLCHOLINE 100MG/5ML SYR IV ONE (09:31)
[2022-05-23] MEDS ORDERED: PHENYLEPHRINE 100MCG/ML 5ML SYR ONE (09:31)
[2022-05-23] MEDS ORDERED: PROPOFOL IV EMULSION 10 MG/ML 20 ML VIAL IV ONE (09:31)
[2022-05-23] MEDS ORDERED: ePHEDrine sulfate 50 MG/ML SYR ONE (09:32)
[2022-05-23] MEDS ORDERED: ONDANSETRON INJ 2 MG/ML 2 ML VIAL ONE (09:39)
[2022-05-23] MEDS ORDERED: MAGNESIUM HYDROXIDE SUSP 30 ML UDC PO PRN (09:48)
[2022-05-23] MEDS ORDERED: DIPHTHERIA/TETANUS/PERTUSSIS 0.5 ML SYR/VIAL IM ONE (09:48)
[2022-05-23] MEDS ORDERED: SENNA 8.6 MG TAB PO PRN (09:48)
[2022-05-23] MEDS ORDERED: KETOROLAC 30 MG/ML VIAL IV PRN (09:48)
[2022-05-23] MEDS ORDERED: BENZOCAINE 20% AER SPR 82.5 GM CAN EXT PRN (09:48)
[2022-05-23] MEDS ORDERED: MEASLES, MUMPS & RUBELLA VIRUS VIAL SQ ONE (09:48)
[2022-05-23] MEDS ORDERED: HYDROCORTISONE ACETATE 25 MG SUPP PR PRN (09:48)
--- NOTE | 2022-05-23 09:56 | Post Operative Brief Note ---
Immediate Post Op Note v1 Date of Surgery May 23, 2022 Pre & Post Diagnosis Operation Date: 05/23/22 07:30 <H/O 2 Csections I identified the patient and participated in the time-out.: Yes Procedure Operation Date: 05/23/22 07:30 Actual Procedures p Section in LD with live female child at 0837 in LR OR - Richi Arias MD Surgeon Richi Mcoky MD Program Dir Dr Cooper Estimated Blood Loss 600 Findings Consistent with Post-Op Diagnosis Drains Gilmore Catheter (Gilmore placed in OR, patient tolerated procedure well. ) Anesthesia Type General Complications none
[2022-05-23] MEDS ORDERED: PHARMACY GLYCEMIC MGMT CONSULT PRN (10:06)
[2022-05-23] MEDS ORDERED: COUGH DROP (SUGAR FREE) LOZ 24 LOZ/1 BOX BUCCAL ONE (10:39)
[2022-05-23] MEDS: OXYTOCIN 20 UNITS in LACTATED RINGER'S 1,000 ML IV SCH ×2 (10:48→19:11)
[2022-05-23] MEDS ORDERED: OXYTOCIN 10 UNITS/ML 10ML VIAL IM ONE (11:00)
[2022-05-23 11:18] LABS: Albumin Level 2.9 gm/dl (3.4-5.0); BUN Creatinine Ratio 18.9 (10-20); Bilirubin,Total 0.3 mg/dl (0.2-1.0); Calcium 8.7 mg/dl (8.5-10.1); Creatinine Clr Calc Pharmacy 207.7 ml/min; Est GFR (African American) 145.6 ml/min; Est GFR (Non-African American) 125.6 ml/min; Globulin 2.9 gm/dl (2.5-4.0); Potassium 4.5 mmol/L (3.5-5.1); Total Protein 5.8 gm/dl (6.0-8.3)
--- NOTE | 2022-05-23 11:29 | Operative Report (OR) ---
DATE OF SURGERY: 05/23/2022. PREOPERATIVE DIAGNOSIS: The patient is a 32-year-old 3, para 2-0-0-2, at 39 weeks of gestation, history of prior 2 sections and is scheduled for a repeat section. POSTOPERATIVE DIAGNOSIS: The patient is a 32-year-old 3, para 2-0-0-2, at 39 weeks of gestation, history of prior 2 sections and is scheduled for a repeat section. PROCEDURE: Repeat low transverse with Pfannenstiel skin incision and lysis of adhesions. SURGEON: Richi Mckoy MD. LIGHT ARMORED VEHICLE OFFICER: Callie Cooper MD. ESTIMATED BLOOD LOSS: 600 mL. DRAINS: Gilmore catheter drained 100 mL of clear urine. ANESTHESIA: Spinal and then general endotracheal. ANESTHESIOLOGIST: Dr. Medina. COMPLICATIONS: None. FINDINGS: Baby was a viable female delivered at 8:41 a.m. Apgars were 7/9, weight was 3514 grams. Baby was in cephalic presentation. Maternal findings; normal uterus, fallopian tubes, and ovaries. There were adhesions between the omentum and the anterior abdominal wall and normal scarring of the fascia as expected. DESCRIPTION OF PROCEDURE: The patient was taken to the operating room where spinal anesthesia was given without difficulty. When she laid down, she was found to have high spinal. Decision was made to convert into general anesthesia by anesthesia team. Please see their dictated note for details. She was prepared and draped in usual fashion. Then a Pfannenstiel skin incision was made and from the old scar, carried to the underlying layer of fascia with the Bovie. Fascia was incised in the midline and extended laterally with the help of Cottrell scissors. Upper aspect of the fascial incision was grasped with 2 Roz clamps, elevated and underlying rectus muscles were dissected off sharply with Cottrell scissors. Lower aspect of the fascial incision was grasped with 2 Roz clamps, elevated, and underlying rectus muscles were dissected off sharply with Cottrell scissors. The rectus muscles were in the midline. Peritoneum was extended inferiorly and superiorly with good visualization of the bladder as well as bowels. The rectus muscles were manually and stretched. Bladder blade was inserted. Vesicouterine peritoneum was identified, grasped with pickups, entered sharply with Metzenbaum scissors. Bladder flap was created digitally and bladder blade was reinserted. Lower uterine segment was thin, but intact. It was incised with a scalpel. Membranes were ruptured. Clear fluid was obtained. The incision was extended laterally with the help of fingers. The head was delivered without difficulty. Shoulders were delivered with minimal traction. Mouth and nose were suctioned. Cord was clamped x2 and cut, and baby was handed off to the waiting pediatric team with Dr De León. Then the placenta was delivered manually as intact and complete. Uterus was exteriorized and cleared of all clots and debris, and the incision was repaired with 0 Vicryl in a running locked fashion. A second imbricating layer was placed with another 0 Vicryl in a running locked fashion. There was some oozing on the middle of the incision. Those were repaired with [id number]-[id number]-tgrpt stitches x2. Excellent hemostasis was achieved. Cul-de-sac was irrigated with warm normal saline and suctioned and it appeared to be normal. The patient had normal fallopian tubes and ovaries. Uterus was returned to the abdomen. Pelvis was irrigated with warm normal saline and suctioned. Incision was checked to be again hemostatic. Parietal peritoneum was grasped with 3 Carine clamps. The omentum was adhered on the left side as well as in the middle, and it was cleaned and the thin portion was incised with the tip of Bovie and excellent hemostasis was achieved. Omentum and the bowels were pushed back into the abdomen, with a blue plastic Fish retractor. The parietal peritoneum was reapproximated with 2-0 Vicryl in a running fashion and the Fish retractor was removed. The rectus muscles were repaired with another 2-0 Vicryl in a running fashion. Excellent hemostasis was achieved. Rectus fascia was reapproximated with #1 Vicryl, starting from both corners and meeting in the midline in a running fashion. Subcuticular fat tissue was brought together with 3-0 Vicryl in a running fashion. The skin was closed with 4-0 Monocryl in a subcuticular fashion, and a MIGEL dressing was placed over the incision. The mom and baby tolerated the procedure well. Sponge, needle, and instrument count was correct x3, and the patient received 3 grams of cefazolin before surgery. She was taken to recovery room in stable condition. No complications happened and I was and Dr. Cooper was present during whole procedure. My oncology physician assistant was needed for retraction, aid during delivery of infant and hemostasis throughout the procedure. Job ID: [id number] [facility] CENT[facility]risty
--- NOTE | 2022-05-23 12:27 | Anesthesiology Progress Note ---
Date of Service May 23, 2022 Anesthesia Post Procedure Vital Signs Vital Signs: Temp Pulse Resp BP Pulse Ox O2 Del Method O2 Flow Rate 05/23/22 11:26 18 05/23/22 10:56 18 05/23/22 10:56 36.8 C 20 Room Air 05/23/22 10:46 18 Room Air 05/23/22 10:36 18 Room Air 05/23/22 10:26 18 Room Air 05/23/22 10:16 18 Room Air 05/23/22 10:06 18 Oxymask 2 05/23/22 09:56 36.6 C 16 Oxymask 2 05/23/22 05:43 36.8 C 20 05/23/22 12:26 155/89 H 05/23/22 12:22 65 98 05/23/22 12:17 69 99 05/23/22 12:16 62 154/84 H 05/23/22 12:14 59 L 157/76 H 05/23/22 12:12 69 98 05/23/22 12:09 67 166/74 H 05/23/22 12:07 98 05/23/22 12:07 65 05/23/22 12:07 63 161/82 H 05/23/22 12:02 90 95 05/23/22 12:03 94 H 94 05/23/22 11:57 96 05/23/22 11:57 67 05/23/22 11:57 68 156/82 H 05/23/22 11:52 62 96 05/23/22 11:47 97 05/23/22 11:47 65 05/23/22 11:47 62 156/79 H 05/23/22 11:42 61 98 05/23/22 11:37 97 05/23/22 11:37 67 05/23/22 11:37 62 154/82 H 05/23/22 11:32 69 97 05/23/22 11:27 97 05/23/22 11:27 61 05/23/22 11:27 59 L 152/78 H 05/23/22 11:22 68 96 05/23/22 11:17 64 97 05/23/22 11:16 64 150/77 H 05/23/22 11:12 82 96 05/23/22 11:07 65 97 05/23/22 11:06 64 147/80 H 05/23/22 11:02 65 96 05/23/22 10:57 65 97 05/23/22 10:56 62 145/73 H 05/23/22 10:52 62 97 05/23/22 10:47 77 96 05/23/22 10:46 69 145/75 H 05/23/22 10:42 75 96 05/23/22 10:37 72 97 05/23/22 10:36 61 144/74 H 05/23/22 10:32 69 96 05/23/22 10:30 76 94 05/23/22 10:27 69 96 05/23/22 10:26 68 141/69 H 05/23/22 10:22 77 97 05/23/22 10:17 76 96 05/23/22 10:16 75 139/67 05/23/22 10:12 75 96 05/23/22 10:07 98 05/23/22 10:07 70 05/23/22 10:07 71 136/61 05/23/22 10:02 73 98 05/23/22 09:57 97 05/23/22 09:57 70 05/23/22 09:57 74 128/60 05/23/22 09:53 84 90 05/23/22 09:52 79 97 05/23/22 09:47 83 93 05/23/22 09:46 88 132/62 05/23/22 06:29 74 147/82 H 05/23/22 06:20 65 141/76 H 05/23/22 05:31 110 H 144/92 H Transfer of Care Handoff Completed per policy Notes Mental Status: alert / awake / arousable and participated in evaluation Nausea / Vomiting: adequately controlled Pain: adequately controlled Airway Patency, RR, SpO2: stable & adequate BP & HR: stable & adequate Hydration State: stable & adequate Neuraxial Anesthesia: was administered and sensory block is resolving Anesthetic Complications: no major complications apparent and Pt Satisfied with anesthetic care
[2022-05-23] MEDS ORDERED: LABETALOL HCL 100 MG TAB ONE (12:29)
[2022-05-23] MEDS: KETOROLAC 30 MG/ML VIAL IV PRN ×2 (12:31→21:32)
[2022-05-23 12:54] LABS: Estimated Average Glucose 103 mg/dl; Hemoglobin A1C 5.2 % (4.5-5.6)
[2022-05-23] MEDS ORDERED: LABETALOL HCL 100 MG TAB PO SCH (13:00)
[2022-05-23] MEDS ORDERED: LABETALOL HCL 100 MG TAB PO ONE (14:00)
[2022-05-23] MEDS: INSULIN ASPART PER UNIT SC SCH ×3 (14:19→21:47)
--- NOTE | 2022-05-23 15:10 | Pharmacy Report ---
Pharmacy Glycemic Short Note 2 - Date of Service May 23, 2022 - Glycemic Short BSG Results (Last 24 hours): 05/23/22 05/23/22 05/23/22 05:37 10:10 11:38 Glucose 144 H POC Glucose 133 H 153 H OUTPATIENT ANTIDIABETIC REGIMEN: * Metformin 2000 mg BID, Sitagliptin, Farxiga prior to * Current insulin dosing: novolog 5 units TID, Determir 32 units BID * A1c 5.2% ASSESSMENT: * Consulted for glycemic management post-. Patient was on oral medications prior to * Insulin needs drastically reduce immediately post- and with breast feeding. * Will order novolog only for now, add basal if BSGs trend upward PLAN FOR INPATIENT GLYCEMIC CONTROL: * Hold outpatient oral diabetes medications * Basal insulin * Will put scale for HS 0/10 units * Bolus insulin * NovoLog per scale ACHS or Q6hrs while NPO * Goal Range: Low 110 mg/dL - High 160 mg/dL * Correction Factor: 35 mg/dL/unit * Nutritional / Prandial insulin per carb ratio of 1 unit per 20 grams CHO consumed
--- NOTE | 2022-05-23 15:32 | Obstetrical Progress Note ---
Date of Service May 23, 2022 Assessment & Plan Admission and Anticipated Discharge Date Admission Date: May 23, 2022 Subjective I spoke with Dr Pretty from anticoagulation clinic and she recommended Lovenox 60 mg bid for 12 weeks Results & Data ([facility]) Vital Signs (Past 12 Hours) Vital Signs Temp Pulse Resp BP Pulse Ox O2 Del Method O2 Flow Rate 05/23/22 11:26 18 05/23/22 10:56 18 05/23/22 10:56 36.8 C 20 Room Air 05/23/22 10:46 18 Room Air 05/23/22 10:36 18 Room Air 05/23/22 10:26 18 Room Air 05/23/22 10:16 18 Room Air 05/23/22 10:06 18 Oxymask 2 05/23/22 09:56 36.6 C 16 Oxymask 2 05/23/22 05:43 36.8 C 20 05/23/22 15:29 57 L 163/79 H 05/23/22 15:27 63 98 05/23/22 15:22 60 97 05/23/22 15:17 66 98 05/23/22 15:12 68 99 05/23/22 15:07 61 97 05/23/22 15:02 58 L 99 05/23/22 15:01 54 L 160/82 H 05/23/22 14:57 60 98 05/23/22 14:52 62 99 05/23/22 14:49 53 L 176/86 H 05/23/22 14:47 57 L 95 05/23/22 14:42 57 L 99 05/23/22 14:37 56 L 99 05/23/22 14:32 55 L 100 05/23/22 14:27 62 98 05/23/22 14:22 67 99 05/23/22 14:17 60 100 05/23/22 14:12 54 L 98 05/23/22 14:07 59 L 100 05/23/22 14:02 57 L 100 05/23/22 13:57 58 L 98 05/23/22 13:52 68 98 05/23/22 13:47 65 99 05/23/22 13:42 63 99 05/23/22 13:37 65 99 05/23/22 13:32 67 99 05/23/22 13:27 58 L 99 05/23/22 13:26 55 L 162/91 H 05/23/22 13:22 56 L 99 05/23/22 13:17 54 L 99 05/23/22 13:16 54 L 165/87 H 05/23/22 13:12 56 L 99 05/23/22 13:08 62 163/88 H 05/23/22 13:07 60 98 05/23/22 13:06 57 L 161/91 H 05/23/22 13:02 58 L 98 05/23/22 12:57 58 L 98 05/23/22 12:56 60 162/91 H 05/23/22 12:52 62 98 05/23/22 12:47 67 97 05/23/22 12:46 58 L 158/85 H 05/23/22 12:42 60 97 05/23/22 12:37 69 98 05/23/22 12:36 63 158/79 H 05/23/22 12:32 66 98 05/23/22 12:27 62 98 05/23/22 12:26 66 155/89 H 05/23/22 12:22 65 98 05/23/22 12:17 69 99 05/23/22 12:16 62 154/84 H 05/23/22 12:14 59 L 157/76 H 05/23/22 12:12 69 98 05/23/22 12:09 67 166/74 H 05/23/22 12:07 98 05/23/22 12:07 65 05/23/22 12:07 63 161/82 H 05/23/22 12:02 90 95 05/23/22 12:03 94 H 94 05/23/22 11:57 96 05/23/22 11:57 67 05/23/22 11:57 68 156/82 H 05/23/22 11:52 62 96 05/23/22 11:47 97 05/23/22 11:47 65 05/23/22 11:47 62 156/79 H 05/23/22 11:42 61 98 05/23/22 11:37 97 05/23/22 11:37 67 05/23/22 11:37 62 154/82 H 05/23/22 11:32 69 97 05/23/22 11:27 97 05/23/22 11:27 61 05/23/22 11:27 59 L 152/78 H 05/23/22 11:22 68 96 05/23/22 11:17 64 97 05/23/22 11:16 64 150/77 H 05/23/22 11:12 82 96 05/23/22 11:07 65 97 05/23/22 11:06 64 147/80 H 05/23/22 11:02 65 96 05/23/22 10:57 65 97 05/23/22 10:56 62 145/73 H 05/23/22 10:52 62 97 05/23/22 10:47 77 96 05/23/22 10:46 69 145/75 H 05/23/22 10:42 75 96 05/23/22 10:37 72 97 05/23/22 10:36 61 144/74 H 05/23/22 10:32 69 96 05/23/22 10:30 76 94 05/23/22 10:27 69 96 05/23/22 10:26 68 141/69 H 05/23/22 10:22 77 97 05/23/22 10:17 76 96 05/23/22 10:16 75 139/67 05/23/22 10:12 75 96 05/23/22 10:07 98 05/23/22 10:07 70 05/23/22 10:07 71 136/61 05/23/22 10:02 73 98 05/23/22 09:57 97 05/23/22 09:57 70 05/23/22 09:57 74 128/60 05/23/22 09:53 84 90 05/23/22 09:52 79 97 05/23/22 09:47 83 93 05/23/22 09:46 88 132/62 05/23/22 06:29 74 147/82 H 05/23/22 06:20 65 141/76 H 05/23/22 05:31 110 H 144/92 H
[2022-05-23] MEDS ORDERED: ceFAZolin 1000MG 1,000 MG/7.5 ML SYR IV ONE (16:00)
[2022-05-23] MEDS ORDERED: ceFAZolin 2000MG 2,000 MG/15 ML SYR IV ONE (16:00)
[2022-05-23] MEDS ORDERED: ceFAZolin 3,000 MG in DEXTROSE 5% 50 ML IV ONE (16:00)
[2022-05-23] MEDS: hydrALAZINE 10 MG TAB PO SCH ×2 (16:25→21:29)
--- NOTE | 2022-05-23 16:38 | Obstetrical Progress Note ---
Date of Service May 23, 2022 Assessment & Plan Admission and Anticipated Discharge Date Admission Date: May 23, 2022 Subjective BP's have been elevated, no symptoms. She was sad crying when case management director came and talked to her about other kids custody. she took total of 200 mg of PO Labetalol Denies pain on surgical site/ RAMIREZ/ Change in vision/ N&V Plan to add PO Hydralazine and continue to monitor closely. Results & Data ([facility]) Vital Signs (Past 12 Hours) Vital Signs Temp Pulse Resp BP Pulse Ox O2 Del Method O2 Flow Rate 05/23/22 11:56 20 05/23/22 11:26 18 05/23/22 10:56 18 05/23/22 10:56 36.8 C 20 Room Air 05/23/22 10:46 18 Room Air 05/23/22 10:36 18 Room Air 05/23/22 10:26 18 Room Air 05/23/22 10:16 18 Room Air 05/23/22 10:06 18 Oxymask 2 05/23/22 09:56 36.6 C 16 Oxymask 2 05/23/22 05:43 36.8 C 20 05/23/22 16:32 59 L 99 05/23/22 16:27 63 97 05/23/22 16:24 63 94 05/23/22 16:22 65 97 05/23/22 16:17 68 86 L 05/23/22 16:12 73 95 05/23/22 16:11 67 93 05/23/22 16:09 58 L 157/79 H 05/23/22 16:07 64 98 05/23/22 16:02 64 98 05/23/22 15:57 62 98 05/23/22 15:52 60 97 05/23/22 15:47 63 99 05/23/22 15:42 68 98 05/23/22 15:37 60 98 05/23/22 15:32 62 98 05/23/22 15:29 57 L 163/79 H 05/23/22 15:27 63 98 05/23/22 15:22 60 97 05/23/22 15:17 66 98 05/23/22 15:12 68 99 05/23/22 15:07 61 97 05/23/22 15:02 58 L 99 05/23/22 15:01 54 L 160/82 H 05/23/22 14:57 60 98 05/23/22 14:52 62 99 05/23/22 14:49 53 L 176/86 H 05/23/22 14:47 57 L 95 05/23/22 14:42 57 L 99 05/23/22 14:37 56 L 99 05/23/22 14:32 55 L 100 05/23/22 14:27 62 98 05/23/22 14:22 67 99 05/23/22 14:17 60 100 05/23/22 14:12 54 L 98 05/23/22 14:07 59 L 100 05/23/22 14:02 57 L 100 05/23/22 13:57 58 L 98 05/23/22 13:52 68 98 05/23/22 13:47 65 99 05/23/22 13:42 63 99 05/23/22 13:37 65 99 05/23/22 13:32 67 99 05/23/22 13:27 58 L 99 05/23/22 13:26 55 L 162/91 H 05/23/22 13:22 56 L 99 05/23/22 13:17 54 L 99 05/23/22 13:16 54 L 165/87 H 05/23/22 13:12 56 L 99 05/23/22 13:08 62 163/88 H 05/23/22 13:07 60 98 05/23/22 13:06 57 L 161/91 H 05/23/22 13:02 58 L 98 05/23/22 12:57 58 L 98 05/23/22 12:56 60 162/91 H 05/23/22 12:52 62 98 05/23/22 12:47 67 97 05/23/22 12:46 58 L 158/85 H 05/23/22 12:42 60 97 05/23/22 12:37 69 98 05/23/22 12:36 63 158/79 H 05/23/22 12:32 66 98 05/23/22 12:27 62 98 05/23/22 12:26 66 155/89 H 05/23/22 12:22 65 98 05/23/22 12:17 69 99 05/23/22 12:16 62 154/84 H 05/23/22 12:14 59 L 157/76 H 05/23/22 12:12 69 98 05/23/22 12:09 67 166/74 H 05/23/22 12:07 98 05/23/22 12:07 65 05/23/22 12:07 63 161/82 H 05/23/22 12:02 90 95 05/23/22 12:03 94 H 94 05/23/22 11:57 96 05/23/22 11:57 67 05/23/22 11:57 68 156/82 H 05/23/22 11:52 62 96 05/23/22 11:47 97 05/23/22 11:47 65 05/23/22 11:47 62 156/79 H 05/23/22 11:42 61 98 05/23/22 11:37 97 05/23/22 11:37 67 05/23/22 11:37 62 154/82 H 05/23/22 11:32 69 97 05/23/22 11:27 97 05/23/22 11:27 61 05/23/22 11:27 59 L 152/78 H 05/23/22 11:22 68 96 05/23/22 11:17 64 97 05/23/22 11:16 64 150/77 H 05/23/22 11:12 82 96 05/23/22 11:07 65 97 05/23/22 11:06 64 147/80 H 05/23/22 11:02 65 96 05/23/22 10:57 65 97 05/23/22 10:56 62 145/73 H 05/23/22 10:52 62 97 05/23/22 10:47 77 96 05/23/22 10:46 69 145/75 H 05/23/22 10:42 75 96 05/23/22 10:37 72 97 05/23/22 10:36 61 144/74 H 05/23/22 10:32 69 96 05/23/22 10:30 76 94 05/23/22 10:27 69 96 05/23/22 10:26 68 141/69 H 05/23/22 10:22 77 97 05/23/22 10:17 76 96 05/23/22 10:16 75 139/67 05/23/22 10:12 75 96 05/23/22 10:07 98 05/23/22 10:07 70 05/23/22 10:07 71 136/61 05/23/22 10:02 73 98 05/23/22 09:57 97 05/23/22 09:57 70 05/23/22 09:57 74 128/60 05/23/22 09:53 84 90 05/23/22 09:52 79 97 05/23/22 09:47 83 93 05/23/22 09:46 88 132/62 05/23/22 06:29 74 147/82 H 05/23/22 06:20 65 141/76 H 05/23/22 05:31 110 H 144/92 H
[2022-05-23 18:59] LABS: Appearance Urine Clear (Clear); Bacteria Urine Automated Negative (Negative); Bilirubin Urine Negative (Negative); Blood Urine Trace (Negative); Color Urine Dark Yellow; Epithelial Cell Urine Auto >30 /lpf (0-5); Glucose Urine UA Negative (Negative); Ketones Urine 1+ (Negative); Leukocyte Esterase Urine Negative (Negative); Nitrite Urine Negative (Negative); Protein Urine 2+ (Negative); RBC Urine Automated 0-4 /hpf (0-4); Urobilinogen Urine Negative (Negative); pH Urine 6.5 (4.5-7.5)
[2022-05-23 19:21] LABS: Mucus Urine Present (None Prsent)
[2022-05-23] MEDS ORDERED: hydrALAZINE 10 MG TAB PO SCH (21:00)
[2022-05-23] MEDS: ENOXAPARIN INJ 60 MG/0.6 ML SYR SQ SCH (21:28)
[2022-05-23] MEDS: LABETALOL HCL 200 MG TAB PO SCH (21:29)
[2022-05-23] MEDS: DOCUSATE SODIUM 100 MG CAP PO SCH (21:30)
[2022-05-23 21:55] LABS: Creatinine Urine Random 171.1 mg/dl; Protein Creatinine Ratio Urine 0.5 (0-0.2); Total Protein Urine Random 81.5 mg/dl (0-11.9)
[2022-05-23] MEDS ORDERED: ENOXAPARIN INJ 40 MG/0.4 ML SYR SQ SCH (22:00)
[2022-05-24] MEDS ORDERED: diphenhydrAMINE 50 MG/ML VIAL IV PRN (01:41)
[2022-05-24] MEDS ORDERED: diphenhydrAMINE Capsule 25 MG CAP PO PRN (01:41)
[2022-05-24] MEDS ORDERED: PROMETHAZINE HCL 25 MG in SODIUM CHLORIDE 0.9% 50 ML IV PRN (01:41)
[2022-05-24] MEDS ORDERED: ONDANSETRON INJ 2 MG/ML 2 ML VIAL IV PRN (01:41)
[2022-05-24] MEDS ORDERED: KETOROLAC 30 MG/ML VIAL IV PRN (01:41)
[2022-05-24] MEDS ORDERED: MEPERIDINE HCL 50 MG/ML CARP IV PRN (01:41)
[2022-05-24] MEDS: INSULIN ASPART PER UNIT SC SCH ×6 (01:50→21:59)
[2022-05-24] MEDS: SIMETHICONE 80 MG CHEW PO SCH ×5 (02:00→21:57)
[2022-05-24] MEDS: AMOXICILLIN/CLAVULANATE 875 MG TAB PO SCH ×3 (02:00→16:53)
[2022-05-24] MEDS: oxyCODONE/ACETAMINOPHEN 5mg/325mg TAB PO PRN ×5 (03:18→21:56)
[2022-05-24] MEDS: IBUPROFEN 600 MG TAB PO PRN ×5 (03:18→21:57)
[2022-05-24 08:05] LABS: Basophils # (auto) 0.03 K/uL (0-0.2); Basophils % (auto) 0.4 %; Eosinophils # (auto) 0.11 K/uL (0-0.50); Eosinophils % (auto) 1.4 %; Hemoglobin 9.9 g/dl (12.0-16.0); Immature Granulocytes # (auto) 0.04 K/uL (0.00-0.02); Immature Granulocytes % (auto) 0.5 %; Lymphocytes # (auto) 0.91 K/uL (1.2-3.4); Lymphocytes % (auto) 11.4 %; Mean Corpuscular Hemoglobin 29.8 pg (25.0-34.0); Mean Corpuscular Hgb Conc 34.1 g/dL (32.0-36.0); Mean Corpuscular Volume 87.3 fL (80.0-100.0); Mean Platelet Volume 10.1 fL (9.4-12.3); Monocytes % (auto) 6.3 %; Neutrophils # (auto) 6.41 K/uL (1.4-6.5); Platelet Count 155 K/uL (130-400); RDW Coefficient of Variation 14.9 % (11.5-14.5); RDW Standard Deviation 47.2 fL (36.4-46.3); Red Blood Count 3.32 M/uL (3.93-5.22)
[2022-05-24] MEDS: DOCUSATE SODIUM 100 MG CAP PO SCH ×2 (08:16→21:57)
[2022-05-24] MEDS: FERROUS SULFATE 325 MG TAB PO SCH (08:16)
[2022-05-24] MEDS: PRENATAL VITAMIN 1 TAB PO SCH (08:16)
--- NOTE | 2022-05-24 08:34 | Obstetrical Progress Note ---
Date of Service May 24, 2022 Subjective Ambulation: ambulating normally Voiding: no voiding problems Passing Gas:: Yes Diet Tolerance:: regular diet Feeding Type:: breast feeding Current Pain Level(1-10): 0 doing well Physical Exam Constitutional WD/WN, vitals as above Gastrointestinal (Abdomen) Inspection/Auscultation: abdomen normal to inspection and + abdominal surgical incision incision c/d/i Musculoskeletal Extremities: extremities normal to inspection Skin no rashes, warm and dry Neurologic patellar DTR's 2+ bilat, sensation intact Psychiatric A+Ox3, euthymic affect Results & Data ([facility]) Vital Signs (Past 12 Hours) Vital Signs Temp Pulse Resp BP Pulse Ox Pulse Ox O2 Del Method 05/24/22 03:30 37.0 C 71 18 133/81 98 Room Air 05/24/22 01:30 18 98 05/23/22 21:10 18 98 05/23/22 22:20 18 97 05/23/22 23:40 18 99 05/24/22 00:45 18 96 05/23/22 21:00 36.6 C 66 18 149/84 H 100 Room Air 05/23/22 21:00 18 100 05/23/22 21:00 100 O2 Del Method 05/24/22 03:30 05/24/22 01:30 05/23/22 21:10 05/23/22 22:20 05/23/22 23:40 05/24/22 00:45 05/23/22 21:00 05/23/22 21:00 05/23/22 21:00 Room Air Laboratory Results 05/23/22 05/23/22 05/23/22 05:30 05:37 05:37 WBC 8.76 RBC 4.11 Hgb 12.3 Hct 35.3 MCV 85.9 MCH 29.9 MCHC 34.8 RDW Std Deviation 45.2 RDW Coeff of Gela 14.7 H Plt Count 225 MPV 10.1 Immature Gran % (Auto) 0.6 Neut % (Auto) 70.4 Lymph % (Auto) 21.2 [place] % (Auto) 6.6 Eos % (Auto) 0.7 Baso % (Auto) 0.5 Neut # (Auto) 6.17 Lymph # (Auto) 1.86 [place] # (Auto) 0.58 Eos # (Auto) 0.06 Baso # (Auto) 0.04 Immature Gran # (Auto) 0.05 H Sodium Potassium Chloride Carbon Dioxide Anion Gap BUN Creatinine Est Cr Clr Drug Dosing Est GFR ( Amer) Est GFR (Non-Af Amer) BUN/Creatinine Ratio Glucose POC Glucose Estimat Average Glucose Hemoglobin A1c Calcium Total Bilirubin AST ALT Alkaline Phosphatase Total Protein Albumin Globulin Albumin/Globulin Ratio Urine Color Urine Appearance Urine pH Ur Specific [place] Urine Protein Urine Glucose (UA) Urine Ketones Urine Blood Urine Nitrite Urine Bilirubin Urine Urobilinogen Ur Leukocyte Esterase Urine WBC (Auto) Urine RBC (Auto) U Hyaline Cast (Auto) U Epithel Cells (Auto) Urine Bacteria (Auto) Ur Renal Epithelial Cell Urine Mucus Ur Random Creatinine U Random Total Protein Protein/Creatinin Ratio SARS-CoV-2, RNA, NAAT NEGATIVE Blood Type A Positive Antibody Screen NEGATIVE Crossmatch See Detail 05/23/22 05/23/22 05/23/22 05:37 10:10 10:10 WBC RBC Hgb Hct MCV MCH MCHC RDW Std Deviation RDW Coeff of Gela Plt Count MPV Immature Gran % (Auto) Neut % (Auto) Lymph % (Auto) [place] % (Auto) Eos % (Auto) Baso % (Auto) Neut # (Auto) Lymph # (Auto) [place] # (Auto) Eos # (Auto) Baso # (Auto) Immature Gran # (Auto) Sodium 134 L Potassium 4.5 Chloride 105 Carbon Dioxide 21 Anion Gap 8 BUN 10 Creatinine 0.53 L Est Cr Clr Drug Dosing 207.7 Est GFR ( Amer) 145.6 Est GFR (Non-Af Amer) 125.6 BUN/Creatinine Ratio 18.9 Glucose 144 H POC Glucose 133 H Estimat Average Glucose 103 Hemoglobin A1c 5.2 Calcium 8.7 Total Bilirubin 0.3 AST 24 ALT 30 Alkaline Phosphatase 84 Total Protein 5.8 L Albumin 2.9 L Globulin 2.9 Albumin/Globulin Ratio 1.0 Urine Color Urine Appearance Urine pH Ur Specific [place] Urine Protein Urine Glucose (UA) Urine Ketones Urine Blood Urine Nitrite Urine Bilirubin Urine Urobilinogen Ur Leukocyte Esterase Urine WBC (Auto) Urine RBC (Auto) U Hyaline Cast (Auto) U Epithel Cells (Auto) Urine Bacteria (Auto) Ur Renal Epithelial Cell Urine Mucus Ur Random Creatinine U Random Total Protein Protein/Creatinin Ratio SARS-CoV-2, RNA, NAAT Blood Type Antibody Screen Crossmatch 05/23/22 05/23/22 05/23/22 11:38 18:21 18:37 WBC RBC Hgb Hct MCV MCH MCHC RDW Std Deviation RDW Coeff of Gela Plt Count MPV Immature Gran % (Auto) Neut % (Auto) Lymph % (Auto) [place] % (Auto) Eos % (Auto) Baso % (Auto) Neut # (Auto) Lymph # (Auto) [place] # (Auto) Eos # (Auto) Baso # (Auto) Immature Gran # (Auto) Sodium Potassium Chloride Carbon Dioxide Anion Gap BUN Creatinine Est Cr Clr Drug Dosing Est GFR ( Amer) Est GFR (Non-Af Amer) BUN/Creatinine Ratio Glucose POC Glucose 153 H 146 H Estimat Average Glucose Hemoglobin A1c Calcium Total Bilirubin AST ALT Alkaline Phosphatase Total Protein Albumin Globulin Albumin/Globulin Ratio Urine Color Dark Yellow Urine Appearance Clear Urine pH 6.5 Ur Specific [place] 1.030 Urine Protein 2+ H Urine Glucose (UA) Negative Urine Ketones 1+ H Urine Blood Trace H Urine Nitrite Negative Urine Bilirubin Negative Urine Urobilinogen Negative Ur Leukocyte Esterase Negative Urine WBC (Auto) 1-5 Urine RBC (Auto) 0-4 U Hyaline Cast (Auto) 10-30 H U Epithel Cells (Auto) >30 H Urine Bacteria (Auto) Negative Ur Renal Epithelial Cell Not Reportable Urine Mucus Present A Ur Random Creatinine U Random Total Protein Protein/Creatinin Ratio SARS-CoV-2, RNA, NAAT Blood Type Antibody Screen Crossmatch 05/23/22 05/23/22 05/24/22 21:36 Unknown 03:00 WBC RBC Hgb Hct MCV MCH MCHC RDW Std Deviation RDW Coeff of Gela Plt Count MPV Immature Gran % (Auto) Neut % (Auto) Lymph % (Auto) [place] % (Auto) Eos % (Auto) Baso % (Auto) Neut # (Auto) Lymph # (Auto) [place] # (Auto) Eos # (Auto) Baso # (Auto) Immature Gran # (Auto) Sodium Potassium Chloride Carbon Dioxide Anion Gap BUN Creatinine Est Cr Clr Drug Dosing Est GFR ( Amer) Est GFR (Non-Af Amer) BUN/Creatinine Ratio Glucose POC Glucose 96 141 H Estimat Average Glucose Hemoglobin A1c Calcium Total Bilirubin AST ALT Alkaline Phosphatase Total Protein Albumin Globulin Albumin/Globulin Ratio Urine Color Urine Appearance Urine pH Ur Specific [place] Urine Protein Urine Glucose (UA) Urine Ketones Urine Blood Urine Nitrite Urine Bilirubin Urine Urobilinogen Ur Leukocyte Esterase Urine WBC (Auto) Urine RBC (Auto) U Hyaline Cast (Auto) U Epithel Cells (Auto) Urine Bacteria (Auto) Ur Renal Epithelial Cell Urine Mucus Ur Random Creatinine 171.1 U Random Total Protein 81.5 H Protein/Creatinin Ratio 0.5 H SARS-CoV-2, RNA, NAAT Blood Type Antibody Screen Crossmatch 05/24/22 07:33 WBC 8.00 RBC 3.32 L Hgb 9.9 L Hct 29.0 L MCV 87.3 MCH 29.8 MCHC 34.1 RDW Std Deviation 47.2 H RDW Coeff of Gela 14.9 H Plt Count 155 MPV 10.1 Immature Gran % (Auto) 0.5 Neut % (Auto) 80.0 Lymph % (Auto) 11.4 [place] % (Auto) 6.3 Eos % (Auto) 1.4 Baso % (Auto) 0.4 Neut # (Auto) 6.41 Lymph # (Auto) 0.91 L [place] # (Auto) 0.50 Eos # (Auto) 0.11 Baso # (Auto) 0.03 Immature Gran # (Auto) 0.04 H Sodium Potassium Chloride Carbon Dioxide Anion Gap BUN Creatinine Est Cr Clr Drug Dosing Est GFR ( Amer) Est GFR (Non-Af Amer) BUN/Creatinine Ratio Glucose POC Glucose Estimat Average Glucose Hemoglobin A1c Calcium Total Bilirubin AST ALT Alkaline Phosphatase Total Protein Albumin Globulin Albumin/Globulin Ratio Urine Color Urine Appearance Urine pH Ur Specific [place] Urine Protein Urine Glucose (UA) Urine Ketones Urine Blood Urine Nitrite Urine Bilirubin Urine Urobilinogen Ur Leukocyte Esterase Urine WBC (Auto) Urine RBC (Auto) U Hyaline Cast (Auto) U Epithel Cells (Auto) Urine Bacteria (Auto) Ur Renal Epithelial Cell Urine Mucus Ur Random Creatinine U Random Total Protein Protein/Creatinin Ratio SARS-CoV-2, RNA, NAAT Blood Type Antibody Screen Crossmatch
[2022-05-24] MEDS: LABETALOL HCL 200 MG TAB PO SCH ×2 (09:13→21:57)
[2022-05-24] MEDS: ENOXAPARIN INJ 60 MG/0.6 ML SYR SQ SCH ×2 (09:17→21:58)
[2022-05-24] MEDS ORDERED: Nursing to Pharmacy Communication SCH (09:30)
[2022-05-24] MEDS: hydrALAZINE 10 MG TAB PO SCH ×2 (10:00→22:01)
[2022-05-24] MEDS ORDERED: bisacodyL 5 MG TABEC PO SCH (20:00)
[2022-05-24] MEDS ORDERED: FLUoxetine HCL 20 MG CAP PO SCH (21:00)
[2022-05-24] MEDS ORDERED: LANTUS PER UNIT CHARGE SQ ONE (21:00)
[2022-05-24] MEDS: FLUoxetine HCL 20 MG CAP PO SCH (21:57)
[2022-05-25] MEDS: DOCUSATE SODIUM 100 MG CAP PO SCH ×2 (07:32→19:59)
[2022-05-25] MEDS: SIMETHICONE 80 MG CHEW PO SCH ×4 (07:32→19:59)
[2022-05-25] MEDS: IBUPROFEN 600 MG TAB PO PRN ×3 (07:32→16:33)
[2022-05-25] MEDS: FERROUS SULFATE 325 MG TAB PO SCH (07:32)
[2022-05-25] MEDS: PRENATAL VITAMIN 1 TAB PO SCH (07:32)
[2022-05-25] MEDS: oxyCODONE/ACETAMINOPHEN 5mg/325mg TAB PO PRN ×3 (07:33→16:32)
[2022-05-25 07:47] LABS: Hematocrit (blood only) 28.4 % (34.1-44.9); Hemoglobin 9.7 g/dl (12.0-16.0)
[2022-05-25] MEDS: INSULIN ASPART PER UNIT SC SCH ×4 (08:21→21:49)
[2022-05-25] MEDS: ENOXAPARIN INJ 60 MG/0.6 ML SYR SQ SCH ×2 (08:26→19:59)
[2022-05-25] MEDS: hydrALAZINE 10 MG TAB PO SCH ×2 (08:27→20:01)
[2022-05-25] MEDS: AMOXICILLIN/CLAVULANATE 875 MG TAB PO SCH ×2 (08:27→16:34)
[2022-05-25] MEDS: LABETALOL HCL 100 MG TAB PO SCH ×2 (08:38→20:01)
--- NOTE | 2022-05-25 08:45 | Obstetrical Progress Note ---
Date of Service May 25, 2022 Assessment & Plan Admission and Anticipated Discharge Date Admission Date: May 23, 2022 Subjective Patient is seen and examined. She feels well, no complaints. Pain is under control with oral meds. Ambulating without dizziness Voiding without difficulty Tolerating regular diet with out N&V Flatus + BM + Bleeding is minimal No fever/ chills/ CP/ SOB/ N&V/ Leg pain Plans to breast feed but baby is on Insulin. Vital Signs Temp Pulse Resp BP Pulse Ox O2 Del Method 05/25/22 07:35 36.6 C 91 H 20 133/80 98 Room Air 05/25/22 01:00 36.6 C 79 18 134/77 96 Room Air 05/24/22 21:28 36.7 C 76 18 135/85 98 Room Air 05/24/22 16:43 36.9 C 73 18 132/73 96 Room Air 05/24/22 12:45 36.6 C 89 20 127/78 97 Room Air Lab Results 05/23/22 05/23/22 05/23/22 Range/Units 05:30 05:37 05:37 WBC 8.76 (4.8-10.8) K/ul RBC 4.11 (3.93-5.22) M/uL Hgb 12.3 (12.0-16.0) g/dl Hct 35.3 (34.1-44.9) % MCV 85.9 (80.0-100.0) fL MCH 29.9 (25.0-34.0) pg MCHC 34.8 (32.0-36.0) g/dL RDW Std Deviation 45.2 (36.4-46.3) fL RDW Coeff of Gela 14.7 H (11.5-14.5) % Plt Count 225 (130-400) K/uL MPV 10.1 (9.4-12.3) fL Immature Gran % (Auto) 0.6 % Neut % (Auto) 70.4 % Lymph % (Auto) 21.2 % [place] % (Auto) 6.6 % Eos % (Auto) 0.7 % Baso % (Auto) 0.5 % Neut # (Auto) 6.17 (1.4-6.5) K/uL Lymph # (Auto) 1.86 (1.2-3.4) K/uL [place] # (Auto) 0.58 (0.24-0.82) K/uL Eos # (Auto) 0.06 (0-0.50) K/uL Baso # (Auto) 0.04 (0-0.2) K/uL Immature Gran # (Auto) 0.05 H (0.00-0.02) K/uL Sodium (136-145) mmol/L Potassium (3.5-5.1) mmol/L Chloride (98-107) mmol/L Carbon Dioxide (21-32) mmol/L Anion Gap (3-11) BUN (6-23) mg/dl Creatinine (0.6-1.2) mg/dl Est Cr Clr Drug Dosing ml/min Est GFR ( Amer) ml/min Est GFR (Non-Af Amer) ml/min BUN/Creatinine Ratio (10-20) Glucose (70-99(Fasting)) mg/dl POC Glucose (70-99) mg/dl Estimat Average Glucose mg/dl Hemoglobin A1c (4.5-5.6) % Calcium (8.5-10.1) mg/dl Total Bilirubin (0.2-1.0) mg/dl AST (13-39) U/L ALT (7-52) U/L Alkaline Phosphatase (34-104) U/L Total Protein (6.0-8.3) gm/dl Albumin (3.4-5.0) gm/dl Globulin (2.5-4.0) gm/dl Albumin/Globulin Ratio (0.9-2) Urine Color Urine Appearance (Clear) Urine pH (4.5-7.5) Ur Specific [place] (1.000-1.030) Urine Protein (Negative) Urine Glucose (UA) (Negative) Urine Ketones (Negative) Urine Blood (Negative) Urine Nitrite (Negative) Urine Bilirubin (Negative) Urine Urobilinogen (Negative) Ur Leukocyte Esterase (Negative) Urine WBC (Auto) (0-5) /hpf Urine RBC (Auto) (0-4) /hpf U Hyaline Cast (Auto) (0-5) /lpf U Epithel Cells (Auto) (0-5) /lpf Urine Bacteria (Auto) (Negative) Ur Renal Epithelial Cell Urine Mucus (None Prsent) Ur Random Creatinine mg/dl U Random Total Protein (0-11.9) mg/dl Protein/Creatinin Ratio (0-0.2) SARS-CoV-2, RNA, NAAT NEGATIVE (NEGATIVE) Blood Type A Positive Antibody Screen NEGATIVE Crossmatch See Detail 05/23/22 05/23/22 05/23/22 Range/Units 05:37 10:10 10:10 WBC (4.8-10.8) K/ul RBC (3.93-5.22) M/uL Hgb (12.0-16.0) g/dl Hct (34.1-44.9) % MCV (80.0-100.0) fL MCH (25.0-34.0) pg MCHC (32.0-36.0) g/dL RDW Std Deviation (36.4-46.3) fL RDW Coeff of Gela (11.5-14.5) % Plt Count (130-400) K/uL MPV (9.4-12.3) fL Immature Gran % (Auto) % Neut % (Auto) % Lymph % (Auto) % [place] % (Auto) % Eos % (Auto) % Baso % (Auto) % Neut # (Auto) (1.4-6.5) K/uL Lymph # (Auto) (1.2-3.4) K/uL [place] # (Auto) (0.24-0.82) K/uL Eos # (Auto) (0-0.50) K/uL Baso # (Auto) (0-0.2) K/uL Immature Gran # (Auto) (0.00-0.02) K/uL Sodium 134 L (136-145) mmol/L Potassium 4.5 (3.5-5.1) mmol/L Chloride 105 (98-107) mmol/L Carbon Dioxide 21 (21-32) mmol/L Anion Gap 8 (3-11) BUN 10 (6-23) mg/dl Creatinine 0.53 L (0.6-1.2) mg/dl Est Cr Clr Drug Dosing 207.7 ml/min Est GFR ( Amer) 145.6 ml/min Est GFR (Non-Af Amer) 125.6 ml/min BUN/Creatinine Ratio 18.9 (10-20) Glucose 144 H (70-99(Fasting)) mg/dl POC Glucose 133 H (70-99) mg/dl Estimat Average Glucose 103 mg/dl Hemoglobin A1c 5.2 (4.5-5.6) % Calcium 8.7 (8.5-10.1) mg/dl Total Bilirubin 0.3 (0.2-1.0) mg/dl AST 24 (13-39) U/L ALT 30 (7-52) U/L Alkaline Phosphatase 84 (34-104) U/L Total Protein 5.8 L (6.0-8.3) gm/dl Albumin 2.9 L (3.4-5.0) gm/dl Globulin 2.9 (2.5-4.0) gm/dl Albumin/Globulin Ratio 1.0 (0.9-2) Urine Color Urine Appearance (Clear) Urine pH (4.5-7.5) Ur Specific [place] (1.000-1.030) Urine Protein (Negative) Urine Glucose (UA) (Negative) Urine Ketones (Negative) Urine Blood (Negative) Urine Nitrite (Negative) Urine Bilirubin (Negative) Urine Urobilinogen (Negative) Ur Leukocyte Esterase (Negative) Urine WBC (Auto) (0-5) /hpf Urine RBC (Auto) (0-4) /hpf U Hyaline Cast (Auto) (0-5) /lpf U Epithel Cells (Auto) (0-5) /lpf Urine Bacteria (Auto) (Negative) Ur Renal Epithelial Cell Urine Mucus (None Prsent) Ur Random Creatinine mg/dl U Random Total Protein (0-11.9) mg/dl Protein/Creatinin Ratio (0-0.2) SARS-CoV-2, RNA, NAAT (NEGATIVE) Blood Type Antibody Screen Crossmatch 05/23/22 05/23/22 05/23/22 Range/Units 11:38 18:21 18:37 WBC (4.8-10.8) K/ul RBC (3.93-5.22) M/uL Hgb (12.0-16.0) g/dl Hct (34.1-44.9) % MCV (80.0-100.0) fL MCH (25.0-34.0) pg MCHC (32.0-36.0) g/dL RDW Std Deviation (36.4-46.3) fL RDW Coeff of Gela (11.5-14.5) % Plt Count (130-400) K/uL MPV (9.4-12.3) fL Immature Gran % (Auto) % Neut % (Auto) % Lymph % (Auto) % [place] % (Auto) % Eos % (Auto) % Baso % (Auto) % Neut # (Auto) (1.4-6.5) K/uL Lymph # (Auto) (1.2-3.4) K/uL [place] # (Auto) (0.24-0.82) K/uL Eos # (Auto) (0-0.50) K/uL Baso # (Auto) (0-0.2) K/uL Immature Gran # (Auto) (0.00-0.02) K/uL Sodium (136-145) mmol/L Potassium (3.5-5.1) mmol/L Chloride (98-107) mmol/L Carbon Dioxide (21-32) mmol/L Anion Gap (3-11) BUN (6-23) mg/dl Creatinine (0.6-1.2) mg/dl Est Cr Clr Drug Dosing ml/min Est GFR ( Amer) ml/min Est GFR (Non-Af Amer) ml/min BUN/Creatinine Ratio (10-20) Glucose (70-99(Fasting)) mg/dl POC Glucose 153 H 146 H (70-99) mg/dl Estimat Average Glucose mg/dl Hemoglobin A1c (4.5-5.6) % Calcium (8.5-10.1) mg/dl Total Bilirubin (0.2-1.0) mg/dl AST (13-39) U/L ALT (7-52) U/L Alkaline Phosphatase (34-104) U/L Total Protein (6.0-8.3) gm/dl Albumin (3.4-5.0) gm/dl Globulin (2.5-4.0) gm/dl Albumin/Globulin Ratio (0.9-2) Urine Color Dark Yellow Urine Appearance Clear (Clear) Urine pH 6.5 (4.5-7.5) Ur Specific [place] 1.030 (1.000-1.030) Urine Protein 2+ H (Negative) Urine Glucose (UA) Negative (Negative) Urine Ketones 1+ H (Negative) Urine Blood Trace H (Negative) Urine Nitrite Negative (Negative) Urine Bilirubin Negative (Negative) Urine Urobilinogen Negative (Negative) Ur Leukocyte Esterase Negative (Negative) Urine WBC (Auto) 1-5 (0-5) /hpf Urine RBC (Auto) 0-4 (0-4) /hpf U Hyaline Cast (Auto) 10-30 H (0-5) /lpf U Epithel Cells (Auto) >30 H (0-5) /lpf Urine Bacteria (Auto) Negative (Negative) Ur Renal Epithelial Cell Not Reportable Urine Mucus Present A (None Prsent) Ur Random Creatinine mg/dl U Random Total Protein (0-11.9) mg/dl Protein/Creatinin Ratio (0-0.2) SARS-CoV-2, RNA, NAAT (NEGATIVE) Blood Type Antibody Screen Crossmatch 05/23/22 05/23/22 05/24/22 Range/Units 21:36 Unknown 03:00 WBC (4.8-10.8) K/ul RBC (3.93-5.22) M/uL Hgb (12.0-16.0) g/dl Hct (34.1-44.9) % MCV (80.0-100.0) fL MCH (25.0-34.0) pg MCHC (32.0-36.0) g/dL RDW Std Deviation (36.4-46.3) fL RDW Coeff of Gela (11.5-14.5) % Plt Count (130-400) K/uL MPV (9.4-12.3) fL Immature Gran % (Auto) % Neut % (Auto) % Lymph % (Auto) % [place] % (Auto) % Eos % (Auto) % Baso % (Auto) % Neut # (Auto) (1.4-6.5) K/uL Lymph # (Auto) (1.2-3.4) K/uL [place] # (Auto) (0.24-0.82) K/uL Eos # (Auto) (0-0.50) K/uL Baso # (Auto) (0-0.2) K/uL Immature Gran # (Auto) (0.00-0.02) K/uL Sodium (136-145) mmol/L Potassium (3.5-5.1) mmol/L Chloride (98-107) mmol/L Carbon Dioxide (21-32) mmol/L Anion Gap (3-11) BUN (6-23) mg/dl Creatinine (0.6-1.2) mg/dl Est Cr Clr Drug Dosing ml/min Est GFR ( Amer) ml/min Est GFR (Non-Af Amer) ml/min BUN/Creatinine Ratio (10-20) Glucose (70-99(Fasting)) mg/dl POC Glucose 96 141 H (70-99) mg/dl Estimat Average Glucose mg/dl Hemoglobin A1c (4.5-5.6) % Calcium (8.5-10.1) mg/dl Total Bilirubin (0.2-1.0) mg/dl AST (13-39) U/L ALT (7-52) U/L Alkaline Phosphatase (34-104) U/L Total Protein (6.0-8.3) gm/dl Albumin (3.4-5.0) gm/dl Globulin (2.5-4.0) gm/dl Albumin/Globulin Ratio (0.9-2) Urine Color Urine Appearance (Clear) Urine pH (4.5-7.5) Ur Specific [place] (1.000-1.030) Urine Protein (Negative) Urine Glucose (UA) (Negative) Urine Ketones (Negative) Urine Blood (Negative) Urine Nitrite (Negative) Urine Bilirubin (Negative) Urine Urobilinogen (Negative) Ur Leukocyte Esterase (Negative) Urine WBC (Auto) (0-5) /hpf Urine RBC (Auto) (0-4) /hpf U Hyaline Cast (Auto) (0-5) /lpf U Epithel Cells (Auto) (0-5) /lpf Urine Bacteria (Auto) (Negative) Ur Renal Epithelial Cell Urine Mucus (None Prsent) Ur Random Creatinine 171.1 mg/dl U Random Total Protein 81.5 H (0-11.9) mg/dl Protein/Creatinin Ratio 0.5 H (0-0.2) SARS-CoV-2, RNA, NAAT (NEGATIVE) Blood Type Antibody Screen Crossmatch 05/24/22 05/24/22 05/24/22 Range/Units 07:33 09:01 11:29 WBC 8.00 (4.8-10.8) K/ul RBC 3.32 L (3.93-5.22) M/uL Hgb 9.9 L (12.0-16.0) g/dl Hct 29.0 L (34.1-44.9) % MCV 87.3 (80.0-100.0) fL MCH 29.8 (25.0-34.0) pg MCHC 34.1 (32.0-36.0) g/dL RDW Std Deviation 47.2 H (36.4-46.3) fL RDW Coeff of Gela 14.9 H (11.5-14.5) % Plt Count 155 (130-400) K/uL MPV 10.1 (9.4-12.3) fL Immature Gran % (Auto) 0.5 % Neut % (Auto) 80.0 % Lymph % (Auto) 11.4 % [place] % (Auto) 6.3 % Eos % (Auto) 1.4 % Baso % (Auto) 0.4 % Neut # (Auto) 6.41 (1.4-6.5) K/uL Lymph # (Auto) 0.91 L (1.2-3.4) K/uL [place] # (Auto) 0.50 (0.24-0.82) K/uL Eos # (Auto) 0.11 (0-0.50) K/uL Baso # (Auto) 0.03 (0-0.2) K/uL Immature Gran # (Auto) 0.04 H (0.00-0.02) K/uL Sodium (136-145) mmol/L Potassium (3.5-5.1) mmol/L Chloride (98-107) mmol/L Carbon Dioxide (21-32) mmol/L Anion Gap (3-11) BUN (6-23) mg/dl Creatinine (0.6-1.2) mg/dl Est Cr Clr Drug Dosing ml/min Est GFR ( Amer) ml/min Est GFR (Non-Af Amer) ml/min BUN/Creatinine Ratio (10-20) Glucose (70-99(Fasting)) mg/dl POC Glucose 165 H 162 H (70-99) mg/dl Estimat Average Glucose mg/dl Hemoglobin A1c (4.5-5.6) % Calcium (8.5-10.1) mg/dl Total Bilirubin (0.2-1.0) mg/dl AST (13-39) U/L ALT (7-52) U/L Alkaline Phosphatase (34-104) U/L Total Protein (6.0-8.3) gm/dl Albumin (3.4-5.0) gm/dl Globulin (2.5-4.0) gm/dl Albumin/Globulin Ratio (0.9-2) Urine Color Urine Appearance (Clear) Urine pH (4.5-7.5) Ur Specific [place] (1.000-1.030) Urine Protein (Negative) Urine Glucose (UA) (Negative) Urine Ketones (Negative) Urine Blood (Negative) Urine Nitrite (Negative) Urine Bilirubin (Negative) Urine Urobilinogen (Negative) Ur Leukocyte Esterase (Negative) Urine WBC (Auto) (0-5) /hpf Urine RBC (Auto) (0-4) /hpf U Hyaline Cast (Auto) (0-5) /lpf U Epithel Cells (Auto) (0-5) /lpf Urine Bacteria (Auto) (Negative) Ur Renal Epithelial Cell Urine Mucus (None Prsent) Ur Random Creatinine mg/dl U Random Total Protein (0-11.9) mg/dl Protein/Creatinin Ratio (0-0.2) SARS-CoV-2, RNA, NAAT (NEGATIVE) Blood Type Antibody Screen Crossmatch 05/24/22 05/24/22 05/25/22 Range/Units 17:48 21:26 07:36 WBC (4.8-10.8) K/ul RBC (3.93-5.22) M/uL Hgb 9.7 L (12.0-16.0) g/dl Hct 28.4 L (34.1-44.9) % MCV (80.0-100.0) fL MCH (25.0-34.0) pg MCHC (32.0-36.0) g/dL RDW Std Deviation (36.4-46.3) fL RDW Coeff of Gela (11.5-14.5) % Plt Count (130-400) K/uL MPV (9.4-12.3) fL Immature Gran % (Auto) % Neut % (Auto) % Lymph % (Auto) % [place] % (Auto) % Eos % (Auto) % Baso % (Auto) % Neut # (Auto) (1.4-6.5) K/uL Lymph # (Auto) (1.2-3.4) K/uL [place] # (Auto) (0.24-0.82) K/uL Eos # (Auto) (0-0.50) K/uL Baso # (Auto) (0-0.2) K/uL Immature Gran # (Auto) (0.00-0.02) K/uL Sodium (136-145) mmol/L Potassium (3.5-5.1) mmol/L Chloride (98-107) mmol/L Carbon Dioxide (21-32) mmol/L Anion Gap (3-11) BUN (6-23) mg/dl Creatinine (0.6-1.2) mg/dl Est Cr Clr Drug Dosing ml/min Est GFR ( Amer) ml/min Est GFR (Non-Af Amer) ml/min BUN/Creatinine Ratio (10-20) Glucose (70-99(Fasting)) mg/dl POC Glucose 113 H 185 H (70-99) mg/dl Estimat Average Glucose mg/dl Hemoglobin A1c (4.5-5.6) % Calcium (8.5-10.1) mg/dl Total Bilirubin (0.2-1.0) mg/dl AST (13-39) U/L ALT (7-52) U/L Alkaline Phosphatase (34-104) U/L Total Protein (6.0-8.3) gm/dl Albumin (3.4-5.0) gm/dl Globulin (2.5-4.0) gm/dl Albumin/Globulin Ratio (0.9-2) Urine Color Urine Appearance (Clear) Urine pH (4.5-7.5) Ur Specific [place] (1.000-1.030) Urine Protein (Negative) Urine Glucose (UA) (Negative) Urine Ketones (Negative) Urine Blood (Negative) Urine Nitrite (Negative) Urine Bilirubin (Negative) Urine Urobilinogen (Negative) Ur Leukocyte Esterase (Negative) Urine WBC (Auto) (0-5) /hpf Urine RBC (Auto) (0-4) /hpf U Hyaline Cast (Auto) (0-5) /lpf U Epithel Cells (Auto) (0-5) /lpf Urine Bacteria (Auto) (Negative) Ur Renal Epithelial Cell Urine Mucus (None Prsent) Ur Random Creatinine mg/dl U Random Total Protein (0-11.9) mg/dl Protein/Creatinin Ratio (0-0.2) SARS-CoV-2, RNA, NAAT (NEGATIVE) Blood Type Antibody Screen Crossmatch 05/25/22 Range/Units 07:46 WBC (4.8-10.8) K/ul RBC (3.93-5.22) M/uL Hgb (12.0-16.0) g/dl Hct (34.1-44.9) % MCV (80.0-100.0) fL MCH (25.0-34.0) pg MCHC (32.0-36.0) g/dL RDW Std Deviation (36.4-46.3) fL RDW Coeff of Gela (11.5-14.5) % Plt Count (130-400) K/uL MPV (9.4-12.3) fL Immature Gran % (Auto) % Neut % (Auto) % Lymph % (Auto) % [place] % (Auto) % Eos % (Auto) % Baso % (Auto) % Neut # (Auto) (1.4-6.5) K/uL Lymph # (Auto) (1.2-3.4) K/uL [place] # (Auto) (0.24-0.82) K/uL Eos # (Auto) (0-0.50) K/uL Baso # (Auto) (0-0.2) K/uL Immature Gran # (Auto) (0.00-0.02) K/uL Sodium (136-145) mmol/L Potassium (3.5-5.1) mmol/L Chloride (98-107) mmol/L Carbon Dioxide (21-32) mmol/L Anion Gap (3-11) BUN (6-23) mg/dl Creatinine (0.6-1.2) mg/dl Est Cr Clr Drug Dosing ml/min Est GFR ( Amer) ml/min Est GFR (Non-Af Amer) ml/min BUN/Creatinine Ratio (10-20) Glucose (70-99(Fasting)) mg/dl POC Glucose 133 H (70-99) mg/dl Estimat Average Glucose mg/dl Hemoglobin A1c (4.5-5.6) % Calcium (8.5-10.1) mg/dl Total Bilirubin (0.2-1.0) mg/dl AST (13-39) U/L ALT (7-52) U/L Alkaline Phosphatase (34-104) U/L Total Protein (6.0-8.3) gm/dl Albumin (3.4-5.0) gm/dl Globulin (2.5-4.0) gm/dl Albumin/Globulin Ratio (0.9-2) Urine Color Urine Appearance (Clear) Urine pH (4.5-7.5) Ur Specific [place] (1.000-1.030) Urine Protein (Negative) Urine Glucose (UA) (Negative) Urine Ketones (Negative) Urine Blood (Negative) Urine Nitrite (Negative) Urine Bilirubin (Negative) Urine Urobilinogen (Negative) Ur Leukocyte Esterase (Negative) Urine WBC (Auto) (0-5) /hpf Urine RBC (Auto) (0-4) /hpf U Hyaline Cast (Auto) (0-5) /lpf U Epithel Cells (Auto) (0-5) /lpf Urine Bacteria (Auto) (Negative) Ur Renal Epithelial Cell Urine Mucus (None Prsent) Ur Random Creatinine mg/dl U Random Total Protein (0-11.9) mg/dl Protein/Creatinin Ratio (0-0.2) SARS-CoV-2, RNA, NAAT (NEGATIVE) Blood Type Antibody Screen Crossmatch PE: General: Alert, orientedx3, NAD CVS: S1S2 RRR Lungs; CTAB Abd: soft, NT, ND, BS+, fundus firm, below Umbilicus Incision/ MIGEL dressing: Clean, dry, intact Perineum intact, Lochia rubra minimal Ext; NT, no edema AP: 32 yo s/p RC Section, pod# 2 VSS Afebrile doing well On PO Labetalol and Hydralazine for HTN, BP's stable Plan to half the doses today On Insulin for Type II DM, Pharmacy managing the doese On Lovenox Continue routine postop care Encourage ambulation, PO intake All questions were answered D/C home tomorrow Results & Data ([facility]) Vital Signs (Past 12 Hours) Vital Signs Temp Pulse Resp BP Pulse Ox O2 Del Method 05/25/22 07:35 36.6 C 91 H 20 133/80 98 Room Air 05/25/22 01:00 36.6 C 79 18 134/77 96 Room Air 05/24/22 21:28 36.7 C 76 18 135/85 98 Room Air
[2022-05-25] MEDS ORDERED: bisacodyL 10 MG SUPP PR PRN (09:48)
--- NOTE | 2022-05-25 15:07 | Pharmacy Report ---
Pharmacy Glycemic Short Note 2 - Date of Service May 25, 2022 - Glycemic Short BSG Results (Last 24 hours): 05/24/22 05/24/22 05/25/22 17:48 21:26 07:46 POC Glucose 113 H 185 H 133 H 05/25/22 11:30 POC Glucose 131 H OUTPATIENT ANTIDIABETIC REGIMEN: * Metformin 2000 mg BID, Sitagliptin, Farxiga prior to * Current insulin dosing: novolog 5 units TID, Determir 32 units BID * A1c 5.2% ASSESSMENT: 05/25: * Plan for discharge tomorrow * BSGs have been mostly as goal with current insulin dosing- continue * Patient should have close outpatient followup with provider to determine further insulin dosing/ transition to orals if , some oral antidiabetic medications are not recommended for use while (including farxiga). 05/23 * Consulted for glycemic management post-. Patient was on oral medications prior to * Insulin needs drastically reduce immediately post- and with breast feeding. * Will order novolog only for now, add basal if BSGs trend upward PLAN FOR INPATIENT GLYCEMIC CONTROL: * Hold outpatient oral diabetes medications * Basal insulin * 10 units HS * Bolus insulin * NovoLog per scale ACHS or Q6hrs while NPO * Goal Range: Low 110 mg/dL - High 160 mg/dL * Correction Factor: 35 mg/dL/unit * Nutritional / Prandial insulin per carb ratio of 1 unit per 20 grams CHO consumed
[2022-05-25] MEDS: FLUoxetine HCL 20 MG CAP PO SCH (20:00)
[2022-05-25] MEDS ORDERED: LANTUS PER UNIT CHARGE SQ SCH (21:00)
[2022-05-26] MEDS: oxyCODONE/ACETAMINOPHEN 5mg/325mg TAB PO PRN ×2 (03:04→09:12)
[2022-05-26] MEDS: IBUPROFEN 600 MG TAB PO PRN ×2 (03:05→09:12)
[2022-05-26] MEDS: AMOXICILLIN/CLAVULANATE 875 MG TAB PO SCH (09:10)
[2022-05-26] MEDS: hydrALAZINE 10 MG TAB PO SCH (09:10)
[2022-05-26] MEDS: FERROUS SULFATE 325 MG TAB PO SCH (09:11)
[2022-05-26] MEDS: ENOXAPARIN INJ 60 MG/0.6 ML SYR SQ SCH (09:11)
[2022-05-26] MEDS: DOCUSATE SODIUM 100 MG CAP PO SCH (09:12)
[2022-05-26] MEDS: SIMETHICONE 80 MG CHEW PO SCH (09:12)
[2022-05-26] MEDS: PRENATAL VITAMIN 1 TAB PO SCH (09:12)
[2022-05-26] MEDS: LABETALOL HCL 100 MG TAB PO SCH (09:12)
[2022-05-26] MEDS: INSULIN ASPART PER UNIT SC SCH (09:17)
--- NOTE | 2022-05-26 09:59 | Obstetrical Progress Note ---
Date of Service May 26, 2022 Assessment & Plan (1) Ovarian cyst: Present on Admission?: Yes (2) Hyperglycemia: Present on Admission?: Yes (3) Post-op pain: Present on Admission?: No (4) Pre-diabetes: Present on Admission?: Yes (5) Irregular menstruation: Present on Admission?: Yes (6) Encounter for pre-operative examination: Present on Admission?: Yes (7) History of DVT (deep vein thrombosis): Present on Admission?: Yes (8) Obesity, unspecified: Present on Admission?: Yes (9) HTN (hypertension): Present on Admission?: Yes (10) History of pneumothorax: Present on Admission?: Yes (11) History of appendectomy: Present on Admission?: Yes (12) S/P laparoscopic cholecystectomy: Present on Admission?: Yes (13) Previous section: Present on Admission?: Yes Plan PE: General: Alert, orientedx3, NAD CVS: S1S2 RRR Lungs; CTAB Abd: soft, NT, ND, BS+, fundus firm, below Umbilicus Incision/ MIGEL dressing: Clean, dry, intact Perineum intact, Lochia rubra minimal Ext; NT, no edema AP: 32 yo s/p RC Section, pod# 2 VSS Afebrile doing well On PO Labetalol and Hydralazine for HTN, BP's stable Plan to half the doses from yesterday On Insulin for Type II DM, Pharmacy managing the doese On Lovenox Continue routine postop care Encourage ambulation, PO intake All questions were answered D/C home today Day #:: 3 Subjective Ambulation: ambulating normally Passing Gas:: Yes Diet Tolerance:: regular diet Review of Systems All systems reviewed & are unremarkable except as noted in HPI & below Results & Data ([facility]) Vital Signs (Past 12 Hours) Vital Signs Temp Pulse Resp BP O2 Del Method 05/26/22 08:05 36.9 C 75 18 168/90 H Room Air 05/26/22 09:36 85 144/84 H 05/26/22 00:19 36.4 C L 73 18 145/79 H Room Air
--- NOTE | 2022-05-31 10:23 | Discharge Summary (DS) ---
DATE OF ADMISSION: 05/23/2022. DATE OF DISCHARGE: 05/26/2022. DETAILS OF ADMISSION: The patient is a 32-year-old G3, P2-0-0-2, at 39 weeks of gestation with history of prior two C-sections and she was scheduled for a repeat on 05/23/2022. She was admitted in the morning, prepared for the scheduled surgery. She was taken to the OR and delivered a viable female at 8:41 a.m. and her surgery was uncomplicated. See dictated operative note for details. She has h/o DVT, Hypertension, on Labetalol and Type II DM, pregestational and was on insulin. On postop period, the patient was doing well, vital signs stable, afebrile, other than elevated blood pressures. She was started on labetalol 100 mg b.i.d. and then hydralazine 10 mg b.i.d. was added. We consulted with the anticoagulation clinic for history of DVT in the past and they recommended to start Lovenox 60 mg b.i.d. starting from the day of surgery and continue for 12 weeks. Her blood pressures were elevated, but she had no symptoms, no headaches, change in her vision, nausea, vomiting and the dose of labetalol was increased to 200 b.i.d. in the evening. On postop day #1, the patient was doing well. Blood pressures improved on the current dose. Vital signs stable, afebrile. Urine output was good. [place] was discontinued. She started to void. She ambulated, tolerated a diabetic diet and passing gas. She was started on insulin, the dose was adjusted as sliding scale by pharmacy. Postop day #2, the patient was doing well, vital signs stable, afebrile. Pain was under control with medications. Blood pressures were stable around 130s to 70s. Bleeding was minimal. She was passing gas and she moved her bowels. Her postop H and H was 9.9/29. Her glucose levels were elevated, and covered by regular insulin sliding scale. On postop day #3, the patient was doing well. She had MIGEL dressing. It was clean, dry and intact. Abdomen was soft and nontender. She was passing gas, ambulating. She was discharged on postop day #3. Discharge instructions were given. Prescriptions were written for pain, Lovenox and antihypertensives. She is to be seen in the office in a week. Job ID: [id number]
== END 2022-05-26 11:50 | disposition home or self-care (01) | DRG 786 ==
LOC: 4S1 05:22 → EDSTATUS 07:30 → 4E2 20:45

== ENCOUNTER 2024-12-03 12:02 | Observation (INO) ==
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
[2024-12-03 13:58] LABS: Basophils # (auto) 0.08 K/uL (0.00-0.20); Basophils % (auto) 0.9 %; Eosinophils # (auto) 0.19 K/uL (0.00-0.50); Eosinophils % (auto) 2.2 %; Hematocrit (blood only) 40.6 % (37.0-47.0); Hemoglobin 14.7 g/dl (12.0-16.0); Immature Granulocytes # (auto) 0.07 K/uL (0.01-0.20); Immature Granulocytes % (auto) 0.8 %; Lymphocytes # (auto) 2.31 K/uL (1.20-3.40); Lymphocytes % (auto) 26.4 %; Mean Corpuscular Hemoglobin 30.2 pg (25.0-34.0); Mean Corpuscular Hgb Conc 36.2 g/dL (32.0-36.0); Mean Corpuscular Volume 83.4 fL (80.0-100.0); Mean Platelet Volume 9.8 fL (9.4-12.4); Monocytes # (auto) 0.56 K/uL (0.11-0.59); Monocytes % (auto) 6.4 %; Neutrophils # (auto) 5.54 K/uL (1.40-6.50); Neutrophils % (auto) 63.3 %; Platelet Count 286 K/uL (130-400); RDW Coefficient of Variation 13.3 % (11.5-14.5); RDW Standard Deviation 39.8 fL (36.4-46.3); Red Blood Count 4.87 M/uL (4.20-5.40); White Blood Count 8.75 K/ul (4.8-10.8)
[2024-12-03] MEDS: ACETAMINOPHEN 1,000 MG/100 ML VIAL IV STA (14:03)
[2024-12-03] MEDS: LOSARTAN POTASSIUM 25 MG TAB PO STA (14:03)
[2024-12-03] MEDS: ONDANSETRON INJ 2 MG/ML 2 ML VIAL IV STA (14:03)
[2024-12-03 14:16] LABS: Albumin Globulin Ratio 1.5 (0.9-2); Albumin Level 4.5 gm/dl (3.4-5.0); BUN Creatinine Ratio 16.1 (10-20); Bilirubin,Total 0.9 mg/dl (0.2-1.0); Calcium 9.5 mg/dl (8.6-10.3); Creatinine Clr Calc Pharmacy 180.2 ml/min; Potassium 3.9 mmol/L (3.5-5.1); Pregnancy Test, Serum Negative (Negative); Total Protein 7.5 gm/dl (6.0-8.3)
[2024-12-03 14:21] LABS: Troponin I High Sensitivity 5.1 pg/ml (0-14)
[2024-12-03 14:25] LABS: D Dimer 310 ug/L FEU (0-500)
--- NOTE | 2024-12-03 14:30 | CT Scan Report ---
CT head/brain wo con CLINICAL HISTORY: Hypertension. TECHNIQUE: Multiple axial CT images of the head were obtained without contrast. A dose lowering tech nique was utilized adhering to the principles of ALARA. CT DOSE: 625.8 mGy.cm COMPARISON: 03/08/2019 FINDINGS: No intracranial hemorrhage seen. No mass effect, midline shift, or hydrocephalus. No skull fracture. Visualized paranasal sinuses and mastoid air cells are clear. IMPRESSION: No acute findings. ACT 112: Negative or not required by law. The above report was generated using voice recognition software. It may contain grammatical, syntax o r spelling errors. Electronically signed by: Clovis Serrato M.D. 12/03/2024 2:28 PM
--- NOTE | 2024-12-03 14:43 | XRay Report ---
XR chest 1V portable CLINICAL HISTORY: Hypertension COMPARISON STUDY: 06/09/2021 FINDINGS: Heart size and pulmonary vasculature are normal. No effusion, consolidation, or pneumothora x. IMPRESSION: No acute findings. ACT 112: Negative or not required by law. Electronically signed by: Colvis Serrato M.D. 12/03/2024 2:42 PM
[2024-12-03] MEDS: hydrALAZINE HCL 20 MG/ML VIAL IV ONE (14:59)
[2024-12-03] MEDS: LABETALOL HCL IV 5 MG/ML 20ML IV STA ×2 (16:42→18:10)
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
[2024-12-03] MEDS: LOSARTAN POTASSIUM 25 MG TAB PO ONE (18:10)
--- NOTE | 2024-12-03 19:24 | Ultrasound Report ---
EXAM: US venous doppler LE LT CLINICAL HISTORY: left calf pain TECHNIQUE: Ultrasound examination of left lower extremity veins was performed in real time and duplex. One or more of the following were performed- spectral analysis, resistive index, waveform analysis, and pulsed Doppler. COMPARISON: None. FINDINGS: Normal phasic, non-pulsatile, and spontaneous flow is noted in the left common femoral, superficial femoral, popliteal, anterior and posterior tibial and peroneal veins. Visualized veins of left lower extremity demonstrate normal compressibility. No sonographic evidence of acute deep vein thrombosis (DVT) is detected in the visualized veins of lower extremity. Compression and Augmentation: All evaluated veins compress fully with applied transducer pressure. Augmentation of venous flow is noted with distal compression. Additional Findings: No evidence of intraluminal thrombus. IMPRESSION: No sonographic evidence of acute DVT was detected in the left lower extremity veins at the time of examination. Disclaimer: DVT could be missed early in the disease when clot burden is minimal. For patients with moderate and high pretest probability of DVT and negative ultrasound, the [employer] clinical guidelines recommend testing with a D-dimer assay or repeat ultrasound in 5-7 days. If symptoms worsen, the Society of radiologists in ultrasound recommends repeating ultrasound even earlier. Electronically signed by Erich Murphy 12-03-2024 7:24 PM
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
--- OUTSIDE RECORDS SUMMARY | 2024-12-03 19:31 | External Medical Summary ---
Author Name Unknown Address Unknown Organization [id number]:[facility] [place] [facility] [address] [facility] [address] Laboratory Report Ordering Provider Test Date Status 11/05/2024 10:39:01 Final Observation Date Value Abnormality Reference (Units) Status Streptococcus pyogenes DNA [Presence] in Throat by PAULO with probe detection 11/05/2024 10:39:01 Negative. No Group A Streptococcus detected by PCR (amplified probe). Negative Final This test was developed and its performance characteristics determined by [facility]. It has not been cleared or approved by the FDA. The laboratory is regulated under CLIA as qualified to perform high- complexity testing. This test is used for clinical purposes. It should not be regarded as investigational or for research. Performing Location [facility] - [address] [place], [place] [address]fortunato Teresa. [facility] [address]
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
--- OUTSIDE RECORDS SUMMARY | 2024-12-03 19:32 | External Medical Summary ---
Author Name Unknown Address Unknown Organization K09:[facility] [place] [address] Laboratory Report Ordering Provider Test Date Status ALLA MORAES 10/09/2024 15:06:34 Final Observation Date Value Abnormality Reference (Units ) Status BUN 10/09/2024 15:06:34 11 6-20 (mg/dL) Final Creatinine 10/09/2024 15:06:34 0.6 0.5-1.0 (mg/dL) Final Glomerular filtration rate/1.73 sq M.predicted [Volume Rate/Area] in Serum, Plasma or Blood by Creatinine-based formula (CKD-EPI) 10/09/2024 15:06:34 >90 >=60 (mL/min) Final eGFR is calculated based on the CKD-EPI 2020 equation. Sodium 10/09/2024 15:06:34 134 Below low normal 135 -146 (mmol/L) Final Potassium 10/09/2024 15:06:34 4.9 3.5-5.1 (m mol/L) Final Cl 10/09/2024 15:06:34 98 98-107 (mm ol/L) Final CO2 10/09/2024 15:06:34 24 22-32 (mmo l/L) Final Anion gap 10/09/2024 15:06:34 12 7-15 (mmol /L) Final Glucose 10/09/2024 15:06:34 312 Above high normal 70 -120 (mg/dL) Final Calcium 10/09/2024 15:06:34 9.6 8.4-10.2 ( mg/dL) Final Performing Location [facility] [place] [address]
--- OUTSIDE RECORDS SUMMARY | 2024-12-03 19:32 | External Medical Summary ---
Author Name Unknown Address Unknown Organization [id number]:[facility] - [address] [place] [address] Laboratory Report Ordering Provider Test Date Status ALLA MORAES 10/09/2024 15:06:34 Final Observation Date Value Abnormality Reference (Units ) Status HbA1C 10/09/2024 15:06:34 9.0 Above high normal 4. 0-5.6 (%) Final The use of HbA1c to monitor glycemic status is based on normal hemoglobin and HbA composition. This test should not be used in patients with abnormal hemoglobin that affects the half life of the red blood cell or the in vivo glycation rates. Glucose, estimated average 10/09/2024 15:06:34 212 Above high normal <126 (mg/dL) Delvis francis Performing Location [facility] - [address] [place] [address]
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
--- OUTSIDE RECORDS SUMMARY | 2024-12-03 19:32 | External Medical Summary ---
Author Name Unknown Address Unknown Organization K01:[facility] [place] [address] [place] [address] Laboratory Report Ordering Provider Test Date Status ALLA MORAES 10/09/2024 15:06:34 Final Observation Date Value Abnormality Reference (Units ) Status TSH 10/09/2024 15:06:34 1.65 0.27-4.20 (uIU/mL) Final Performing Location LABORATORY [facility] - [address] [place] [address]
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
--- OUTSIDE RECORDS SUMMARY | 2024-12-03 19:33 | External Medical Summary ---
Author Name Unknown Address Unknown Organization K09:[facility] [place] [address] Laboratory Report Ordering Provider Test Date Status 06/22/2024 14:51:00 Final Observation Date Value Abnormality Reference (Units ) Status BUN 06/22/2024 14:51:00 12 6-20 (mg/dL) Final Creatinine 06/22/2024 14:51:00 0.8 0.5-1.0 (mg/dL) Final Glomerular filtration rate/1.73 sq M.predicted [Volume Rate/Area] in Serum, Plasma or Blood by Creatinine-based formula (CKD-EPI) 06/22/2024 14:51:00 >90 >=60 (mL/min) Final eGFR is calculated based on the CKD-EPI 2020 equation. Sodium 06/22/2024 14:51:00 137 135-146 (m mol/L) Final Potassium 06/22/2024 14:51:00 4.7 3.5-5.1 (m mol/L) Final Cl 06/22/2024 14:51:00 99 98-107 (mm ol/L) Final CO2 06/22/2024 14:51:00 25 22-32 (mmo l/L) Final Anion gap 06/22/2024 14:51:00 13 7-15 (mmol /L) Final Glucose 06/22/2024 14:51:00 141 Above high normal 70 -120 (mg/dL) Final Calcium 06/22/2024 14:51:00 9.8 8.4-10.2 ( mg/dL) Final Performing Location [facility] [address] [place] [address]
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
--- OUTSIDE RECORDS SUMMARY | 2024-12-03 19:33 | External Medical Summary ---
Author Name Unknown Address Unknown Organization K01:[facility] - [address] [place] [address] Laboratory Report Ordering Provider Test Date Status 06/22/2024 14:51:00 Final Observation Date Value Abnormality Reference (Units ) Status HbA1C 06/22/2024 14:51:00 6.6 Above high normal 4. 0-5.6 (%) Final The use of HbA1c to monitor glycemic status is based on normal hemoglobin and HbA composition. This test should not be used in patients with abnormal hemoglobin that affects the half life of the red blood cell or the in vivo glycation rates. Glucose, estimated average 06/22/2024 14:51:00 143 Above high normal <126 (mg/dL) Delvis francis Performing Location [facility] - [address] [place] [address]
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
--- OUTSIDE RECORDS SUMMARY | 2024-12-03 19:33 | External Medical Summary | Summary of Care ---
Author Name Unknown Organization [facility] Address [address] [place] [address] Phone [phone] Care Team Providers Care Rolled Ham Lacer Name Role Phone Idalmis Howell PA-C Primary Care Provider [phone] Reason for Visit * Reason Comments Acute Pt is here due to an injury sustained on Saturday06/20/24 her child head butted her nose by accident. Encounter Details Date Type Department Care Team (Late st Contact Info) Description 06/22/2024 3:20 PM EST Office Visit [facility] [address] [place] [address] Idalmis Howell PA-C [address] [place] [address] Injury of nose, initial encounter* Allergies No known active allergiesdocumented as of this encounter (statuses as of 06/22/2024) Medications Blood Pressure CuffIndications: Chronic hypertension in ,Superv ision of high-risk , unspecified trimester Check once a day. Call OB if >160 over 110 1 Each 2 Active CPAP every night at bedtime. Active metFORMIN HCl ER 500 MG Oral Tablet Extended Release 24 Hour (Glucophage XR)Indications:T ype 2 diabetes mellitus with hemoglobin A1c goal of less than 7.0% ([facility]) Take 2 Tablets by mouth in the [...] Additional Information Patient not taking.Reported on 06/22/2024 documented as of this encounter (statuses as [...] trimester 03/07/2022 05/01/2022 Overview (03/07/2022): Following in [facility]. Assessment & Plan (04/11/2022 11:32 [...] her at [facility] next week and [place] in 3 weeks. If growth normalizes in [...] (02/07/2022): 9th %ile at 24 wks, dopplers w/[facility] Assessment & Plan (03/28/2022 4:09 PM [...] assessment in one week. If findings stable, [facility] will reassess UA Doppler every 2 weeks. II. growth ultrasound every 3 weeks. III. surveillance 1x per week via [facility] BPP. IV. Delivery at 39 [...] maintain these target values. Report levels to [facility] clinic weekly. Recommend nutrition consult with RDN. Lifestyle changes are also indicated including optimizing gestational weight gain and physical activity of 30 minutes per day, if not otherwise contraindicated in . Recommend low-dose aspirin 81 mg/day be initiated between 12 weeks and 28 weeks of gestation (optimally before 16 weeks of gestation) and continued until delivery. Recommend [facility] ultrasound o For anatomy survey at 19-20 weeks. o For echocardiography at 21-23 weeks. o For growth assessment every 4 weeks starting at 24-26 weeks gestation. Recommend initiating surveillance at 32 weeks and continue until delivery at 39 weeks. o If poor blood sugar control, please refer to [facility]. Recommend intrapartum monitoring every 1-2 [...] assessment of proteinuria (24-hour urine protein or ygoljav-ox-hqewfubety ratio) and CBC, serum AST/ALT/creatinine. If patient [...] III activity - Anticardiolipin antibodies-IgG, IgM - Nfzq-â7-dsbryxdyrofw antibodies- -IgG, IgM - Lupus Anticoagulant Previous [...] delivery at 36-37 weeks without amniocentesis per [employer]. Every effort should be made by patient s primary OB provider to obtain prior operative reports. 2. As per [employer]'s 2010 practice [...] resolved Faxed breast pump form to [facility] 02/16/2022 Nikole Izaguirre RN 02/16/2022 Problem [...] Encouraged to do so. Has appt with medical transcriber coming up 05/22/2016 Maria Antonia Evangelista RN [...] supplies ordered, nutrition consult placed. Pauline from [place] calling with auth # for 2 diabetic teaching appts. Auth #[id number] 05/05/2013 Laura Hanks RN , normal first [...] was possible. Pt has ortho consult in [place] 09/09/13 09/18/2013; Ortho recommend c/sec - [facility] [...] Total Score [facility]ational Stress Questionnaire Answer Date [...] money to get more. Never true 06/15/2024 [place] Depression Scale Answer Date Recorded [place] Depression Scale Total 8 12/06/2022 The thought [...] for ages 0-17 years) Not on file 11 / Food Insecurity Answer Date Recorded Do you [...] Sign Reading Time Taken Comments Blood Pressure 142/82 06/22/2024 3:03 PM EST Pulse 90 06/22/2024 3:03 PM EST Temperature 37.6 °C (99.7 °F) 06/22/2024 3:03 PM ES T Respiratory Rate - - Oxygen Saturation 95% 06/22/2024 3:03 PM EST Inhaled Oxygen Concentration - - Weight 130.6 kg (288 lb) 06/22/2024 3:03 PM EST Height - - Body Mass Index 51.02 06/15/2024 3:41 PM EST documented in this encounter Progress Notes * Idalmis Howell PA-C - 06/22/2024 3:24 PM EST Images from the original note were not included. History of Present Illness Nelida Gunderson is a 34 year old female that presents for Acute (Pt is here due to an injury sustained on Saturday06/20/24 her child head butted her nose by accident.) Patient is a 34 year old female who presents after being hit in her nose on Saturday. Was laying inbed cuddling her daughter who flopped on her face. Nose bled from the left nostril. Got lightheadedand nauseated. Tender to touch Physical Exam Vitals: 06/22/24 1503 Temp: 99.7 °F (37.6 °C) Pulse: 90 SpO2: 95% BP: 142/82 BP Readings from Last 3 Encounters: 06/22/24 142/82 06/15/24 142/86 03/05/24 168/91 Wt Readings from Last 3 Encounters: 06/22/24 288 lb (130.6 kg) 06/15/24 288 lb (130.6 kg) 03/05/24 294 lb 6.4 oz (133.5 kg) General: alert, healthy, no distress, well nourished, well developed, and cooperative Head: Normocephalic, No masses, lesions, tenderness or abnormalities Eye Exam: PERRLA, extraocular movements intact, conjunctiva are pink and non- injected, sclera clear Ears: External ears normal, Canals clear, TM's Normal Nose: no purulent discharge, mucosal edema, mucosal erythema Oropharynx: no exudate, no erythema, lips, buccal mucosa, and tongue normal, and mucous membranes are moist Neck: supple, no adenopathy, no bruits, thyroid normal size, non-tender, without nodularity I have reviewed the following results: None Assessment and Plan Injury of nose, initial encounter (Primary) - XR NASAL BONES; Future; Expected date: 06/22/2024 Wrap-Up Time: I spent a total of 20-29 minutes (exact time 22 mins) on the date of service in preparation, delivery, and documentation of the care provided to Nelida Gunderson excluding any time spent in the performance of separately billed services. documented in this encounter Nursing Notes * Ruddy Murphy, Student - 06/22/2024 3:04 PM EST The patient has been properly identified by confirmation of name and date of . Chief Complaint Patient presents with Acute Pt is here due to an injury sustained on Saturday06/20/24 her child head butted her nose by accident. documented in this encounter Plan of Treatment Pending Results Name Type Priority Associated Diagnoses Date /Time XR NASAL BONES Medical Imaging Routine Injury of nose, initial encounter 06/22/2024 3:41 PM EST Scheduled Orders Name Type Priority Associated Diagnoses Orde r Schedule XR NASAL BONES Medical Imaging Routine Injury of nose, initial encounter Expected: 06/22/2024, Expires: 07/22/2025 Health Maintenance Due Date Last Done Comments [...] started Depression affecting in first trimester, antepartum Injury of nose, initial encounter- Primary documented in this encounter Advance Directives * [...] Power of Attor sonam? No Care Teams Rolled Ham Lacer Relationship Specialty Start Date End Date Lynda October MELO Santana [address] [facility] [place] [address] PCP - General Physician Cloth Shrinking Machine Operator Helper 02/08/24 documented as of this encounter
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
[2024-12-03] MEDS ORDERED: DEXTROSE 50% 50 ML SYRINGE IV PRN (20:36)
[2024-12-03] MEDS ORDERED: GLUCOSE 10 TAB/TUBE PO PRN (20:36)
[2024-12-03] MEDS ORDERED: GLUCOSE 40% GEL 15 GM TUBE PO PRN (20:36)
[2024-12-03] MEDS ORDERED: CARBOHYDRATES FOR HYPOGLYCEMIA PO PRN (20:36)
[2024-12-03] MEDS ORDERED: GLUCAGON FOR INJ 1 MG VIAL SQ PRN (20:36)
[2024-12-03] MEDS: ACETAMINOPHEN 325 MG TAB PO PRN (21:10)
[2024-12-03] MEDS: CLINDAMYCIN HCL 150 MG CAP PO SCH (21:11)
[2024-12-03] MEDS: ENOXAPARIN INJ 40 MG/0.4 ML SYR SQ SCH (21:11)
[2024-12-03] MEDS: carvediloL 6.25 MG TAB PO SCH (21:12)
[2024-12-03] MEDS: INSULIN ASPART PER UNIT CHARGE SC SCH (21:32)
[2024-12-03 22:11] LABS: Appearance Urine Cloudy (Clear); Bacteria Urine Automated 4+ (None Seen); Bilirubin Urine Negative (Negative); Blood Urine Trace (Negative); Calcium Oxalate Crystals Urine Present (None Prsent); Color Urine Yellow; Glucose Urine UA 3+ (Negative); Ketones Urine 1+ (Negative); Leukocyte Esterase Urine Negative (Negative); Nitrite Urine Negative (Negative); Protein Urine 3+ (Negative); RBC Urine Automated 0-2 /hpf (0-2); Specific Gravity Urine 1.034 (1.000-1.030); Urobilinogen Urine Negative (Negative); pH Urine 5.5 (4.5-7.5)
--- NOTE | 2024-12-03 23:05 | Electrocardiogram Report ---
Test Reason : Blood Pressure : */* mmHG Vent. Rate : 98 BPM Atrial Rate : 98 BPM P-R Int : 150 ms QRS Dur : 80 ms QT Int : 354 ms P-R-T Axes : 39 7 9 degrees QTcB Int : 451 ms Normal sinus rhythm Possible Left atrial enlargement Minimal voltage criteria for LVH, may be normal variant ( R in aVL ) Poor R wave progression, consider anterior FL vs. lead placement vs. LVH Nonspecific T wave abnormality Abnormal ECG When compared with ECG of 09-Jun-2021 12:34, No significant change Confirmed by Mitch Jimenez ([id number]) on 12/03/2024 11:05:11 PM Referred By: REFERRED SELF Confirmed By: Mitch Jimenez
[2024-12-03] MEDS: cefTRIAXone SODIUM 2,000 MG/50 ML BAG IV SCH (23:59)
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
--- OUTSIDE RECORDS SUMMARY | 2024-12-04 03:02 | External Medical Summary | Summary of Care ---
Author Name Unknown Organization [facility] Address [address] [place] [address] Phone [phone] Care Team Providers Care Case Operator Name Role Phone Lynda Idalmis Esther ALEJO Primary Care Provider [phone] Reason for Visit * Reason Comments Acute Elevated BP, chest p ain, headaches Encounter Details Date Type Department Care Team (Late st Contact Info) Description 12/03/2024 11:00 AM EDT Office Visit Family [facility] [address] [facility] [place] [address] Rachna Ansari PA-C [address] [facility] [place] [address] Hypertension goal BP (blood pressure) < 140/90*; [...] Sprays into each nostril in the morning. [place] hand. 16 g 4 Active Ozempic (1 [...] trimester 03/07/2022 05/01/2022 Overview (03/07/2022): Following in [facility]. Assessment & Plan (04/11/2022 11:32 [...] her at [facility] next week and [place] in 3 weeks. If growth normalizes in [...] (02/07/2022): 9th %ile at 24 wks, dopplers w/[facility] Assessment & Plan (03/28/2022 4:09 [...] assessment in one week. If findings stable, [facility] will reassess UA Doppler every 2 weeks. II. growth ultrasound every 3 weeks. III. surveillance 1x per week via [facility] BPP. IV. Delivery at 39 [...] maintain these target values. Report levels to [facility] clinic weekly. Recommend nutrition consult with RDN. Lifestyle changes are also indicated including optimizing gestational weight gain and physical activity of 30 minutes per day, if not otherwise contraindicated in . Recommend low-dose aspirin 81 mg/day be initiated between 12 weeks and 28 weeks of gestation (optimally before 16 weeks of gestation) and continued until delivery. Recommend [facility] ultrasound o For anatomy survey at 19-20 weeks. o For echocardiography at 21-23 weeks. o For growth assessment every 4 weeks starting at 24-26 weeks gestation. Recommend initiating surveillance at 32 weeks and continue until delivery at 39 weeks. o If poor blood sugar control, please refer to [facility]. Recommend intrapartum monitoring every 1-2 [...] assessment of proteinuria (24-hour urine protein or embwzey-xd-drqdljrelb ratio) and CBC, serum AST/ALT/creatinine. If patient [...] III activity - Anticardiolipin antibodies-IgG, IgM - Rzww-â1-jorpgjyvurhj antibodies- -IgG, IgM - Lupus Anticoagulant Previous [...] delivery at 36-37 weeks without amniocentesis per [employer]. Every effort should be made by patient s primary OB provider to obtain prior operative reports. 2. As per [employer]'s 2010 practice [...] breast pump form to [facility] 02/16/2022 Nikole Izaguirre RN 02/16/2022 Problem [...] with pcp to adjust to insulin 11/16/2021 Marai Antonia Evangelista RN 11/16/2021 BMI greater than [...] Encouraged to do so. Has appt with ciaio lumite injector coming up 05/22/2016 Maria Antonia Evangelista RN [...] any current needs or questions 10/12/2016 Nikole Iazguirre RN 10/12/16 Problem Action Taken Date entered [...] supplies ordered, nutrition consult placed. Pauline, from [employer] calling with auth # for 2 diabetic teaching appts. Auth #[id number] 05/05/2013 Laura Hanks RN , normal first [...] was possible. Pt has ortho consult in [place] 09/09/13 09/18/2013; Ortho recommend c/sec - [facility] [...] Adult Total Score 0 08/15/2022 [facility] - Occupational [...] money to get more. Never true 06/15/2024 [place] Depression Scale Answer Date Recorded [place] Depression Scale Total 8 12/06/2022 The thought [...] under stress with going to school at [place] [employer] but feels that the chest pain was [...] the hospital, patient is requesting to go [facility] for evaluation -Did not refill Losartan [...] billed services. Rachna Ansari PA-C Family Practice [facility] [address] [facility] [address] documented in this encounter Plan of Treatment Upcoming Encounters Date Type Department Care Team (Late st Contact Info) Description 03/04/2025 2:00 PM EDT Office Visit General Surgery, [facility] [address] [place] [phone] Federico Hernandez MD [address] [place] [address] Health Maintenance Due Date Last Done Comments [...] Power of Attor sonam? No Care Teams Case Operator Relationship Specialty Start Date End Date Idalmis Howell, MELO [address] [place] [address] PCP - General Physician Electronic Warfare Officer 02/08/24 documented as of this encounter
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
[2024-12-04 06:32] LABS: Mean Corpuscular Hemoglobin 29.7 pg (25.0-34.0); Mean Corpuscular Hgb Conc 35.1 g/dL (32.0-36.0); Mean Corpuscular Volume 84.7 fL (80.0-100.0); Mean Platelet Volume 9.6 fL (9.4-12.4); Platelet Count 225 K/uL (130-400); RDW Coefficient of Variation 13.5 % (11.5-14.5); RDW Standard Deviation 41.6 fL (36.4-46.3); Red Blood Count 4.37 M/uL (4.20-5.40); White Blood Count 7.49 K/ul (4.8-10.8)
[2024-12-04 07:02] LABS: Alanine Aminotransferase 82 U/L (7-52); Albumin Level 3.8 gm/dl (3.4-5.0); Alkaline Phosphatase 67 U/L (34-104); Anion Gap 5 (3-11); Aspartate Aminotransferase 52 U/L (13-39); BUN Creatinine Ratio 15.5 (10-20); Bilirubin Direct 0.1 mg/dl (0-0.2); Bilirubin,Total 0.6 mg/dl (0.2-1.0); Blood Urea Nitrogen 9 mg/dl (6-23); Calcium 8.8 mg/dl (8.6-10.3); Carbon Dioxide 31 mmol/L (21-32); Chloride 100 mmol/L (98-107); Creatinine Clr Calc Pharmacy 194.1 ml/min; Glucose 238 mg/dl (70-99(Fasting)); Potassium 3.7 mmol/L (3.5-5.1); Sodium 136 mmol/L (136-145); Total Protein 6.4 gm/dl (6.0-8.3)
[2024-12-04 07:51] LABS: Estimated Average Glucose 212 mg/dl
[2024-12-04 07:56] LABS: Cholesterol 243 mg/dl (0-200); HDL Cholesterol 33 mg/dl; Triglycerides 477 mg/dl (0-150)
[2024-12-04 07:57] LABS: Chol HDL Ratio 7.4 (0-5)
[2024-12-04] MEDS: LANTUS PER UNIT CHARGE SQ SCH (08:15)
[2024-12-04] MEDS: LOSARTAN/HCTZ 50/12.5MG TAB PO SCH (08:16)
[2024-12-04] MEDS: carvediloL 6.25 MG TAB PO SCH (08:17)
[2024-12-04] MEDS: DULoxetine HCL 60 MG CAP PO SCH (08:17)
[2024-12-04] MEDS ORDERED: LISINOPRIL/HCTZ 20/25MG 1 TAB PO SCH (09:00)
[2024-12-04] MEDS ORDERED: LOSARTAN POTASSIUM 50 MG TAB PO SCH (09:00)
[2024-12-04] MEDS: ROSUVASTATIN CALCIUM 5 MG TAB PO SCH (11:50)
--- NOTE | 2024-12-04 12:39 | Hospitalist Progress Note ---
Date of Service December 04, 2024 Assessment & Plan (1) Hypertensive urgency: (2) Type 2 diabetes mellitus: (3) Elevated LFTs: Plan Ms. Gunderson is a 34 year old F who has a significant PMH of T2DM, HTN, HLD, SANDRA on Cpap, Morbid obesity, hx of DVT, depression, elevated LFTS who presented to ED from PCP office 2/2 to hypertensive urgency. Outpt BPs in clinic were 195/120 and 170/118 associated with CP and RAMIREZ. Head CT w/o abnormality. ECG w/o ischemic change. Troponin not evaluated in ED, but pt w/o chest pain. Echo from 2020 reviewed which showed grade 1 diastolic dysfunction, and borderline LVH, but normal EF. Outpt medical records reviewed which showed intermitted elevated SBP 130s-150s since 2016. She reports being started on losartan 25mg in September but stopped taking for 1 week. #Hypertensive urgency admitted to PCU pt with long standing hx of intermittent hypertension; however significantly elevated BPs noted in clinic yesterday in setting of not taking losartan BP remains elevated today at 182/118 Started on Losartan/HCTZ 50mg-12.5 two tablets daily, coreg 6.25mg bid likely to require multidrug regimen with adjustments to obtain goal of < 130/80 pt educated to limit caffeine, alcohol, OTC meds/supplements until BP under control She is also instructed to not start an new exercise regimen until blood pressure under control If control is not obtained with multidrug regimen she will require secondary hypertension work up as an outpt She was educated on low sodium diet and monitoring intake of heavily processed foods in form of fast food, frozen, canned or processed meats If BP reduces this afternoon will consider discharge to outpt with close PCP follow up Would recommend clinic obtain ambulatory blood pressure monitoring for accurate BP assessment Recommend repeat BMP and LFT as outpt with new medications #T2DM, not well controlled A1C 9, lantus/novolog per protocol Ozempic recently increased to 1mg which she started saturday she is also on metformin 1g PM, she was instructed we could increase this to twice daily, but she wishes to not make any further med adjustment with the ozempic recently adjusted Discussed with personal development educator who is going to set her up with Dexcom, I will write scripts #HLD #Hypertriglyceridemia Trig 477, Chol 243, HDL 33, LDL unable to be calculated due to trig elevation Will start Crestor 5mg daily, pt endorses LLE cramping so discussed slow titration of this medication to ensure compliance recommend LFT monitoring #Abnormal urinalysis #Proteinuria evidence on UA, will obtain random urine protein recommend repeat as outpt, may be in setting of hypertension would refer pt to outpt nephrology for further evaluation pt currently on empiric Rocephin awaiting urine culture #SANDRA: continue Cpap at HS #Elevated LFTS: suspect likely fatty liver infiltration given obesity and chronic co morbidities, she is not having any abd pain, recommend routine RUQ US as outpt #Right axillary hidradenitis: following general surgery, on clindamycin Had a lengthy discussion with patient regarding reducing her risk factors for developing cardiovascular disease given hx of HTN, HLD, T2DM and morbid obesity. We discussed improving her risk factors with appropriate treatment as well as weight loss. She met with clinical staff educator as well who also discussed weight loss. She is encouraged to not start an exercise regimen until BP controlled. #DVT ppx: SQ Lovenox FULL CODE PCP: MELO Howell Dispo: admitted to PCU - may discharge later today if BP more controlled or later this weekend Pt was seen and examined in collaboration with , please see addendum I spent a total of 61 minutes coordinating, documenting and providing care for this patient excluding time spent in the performance of separately billed services or time spent by another provider/QHP. Admission and Anticipated Discharge Date Admission Date: December 03, 2024 Supervising Physician Co-Signing Physician Notes I have reviewed the advanced practitioner's documentation, and I agree with, and take responsibility for the plan of care I spent a total of 20 minutes coordinating, documenting, and providing care for this patient excluding time spent in the performance of separately billed services. All of the aforementioned completed while collaborating with the assigned advanced practitioner for a full treatment plan Subjective Pt was seen in 239-1. Follow up HTN urgency. Pt reports minor RAMIREZ this a.m. RAMIREZ is frontal. He denies change in vision/hearing, chest pain, sob or palpitations. She reports no recent illness. 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 She reports being told her BP was high in September. She misplaced her med for 1 week. She denies FH of stroke of CAD, but states father has high blood pressure. She reports being very busy with a 2 year old daughter at home and going to school. Review of Systems Review of Systems: All systems reviewed & are unremarkable except as noted in HPI & below Physical Exam Physical Exam: Gen: WD/WN, F, sitting at bedside, obese, NAD, A&O x3 HEENT: Normocephalic, atraumatic, conjunctivae moist, sclerae anicteric, mucous membranes moist. Lung: Clear to Auscultation bilaterally, no wheezes/rales/rhonchi Heart: Regular rate, regular rhythm, no murmurs, rubs, or gallops Abdomen: Soft, NT, ND +BS x 4 Extremities: No edema Skin: Warm, no rash, negative turgor. Results & Data Results & Data Vital Signs (Past 12 Hours) Vital Signs Temp Pulse Pulse Resp BP BP Pulse Ox 12/04/24 11:12 36.5 C 84 21 182/118 H 97 12/04/24 08:00 81 12/04/24 08:00 12/04/24 07:08 36.7 C 81 20 185/118 H 97 12/04/24 03:11 36.8 C 87 16 163/100 H 97 O2 Del Method 12/04/24 11:12 Room Air 12/04/24 08:00 12/04/24 08:00 Room Air 12/04/24 07:08 Room Air 12/04/24 03:11 Room Air Laboratory Results I have independently reviewed and interpreted patient's cbc, bmp, lipid panel, a1c Short CBC 12/03/24 12/04/24 Range/Units 12:27 06:04 WBC 8.75 7.49 (4.8-10.8) K/ul Hgb 14.7 13.0 (12.0-16.0) g/dl Hct 40.6 37.0 (37.0-47.0) % Plt Count 286 225 (130-400) K/uL BMP 12/03/24 12/04/24 12:27 06:04 Sodium 134 L 136 Potassium 3.9 3.7 Chloride 98 100 Carbon Dioxide 27 31 BUN 10 9 Creatinine 0.62 0.58 L Glucose 256 H 238 H Calcium 9.5 8.8 Liver Function 12/03/24 12/04/24 Range/Units 12:27 06:04 Total Bilirubin 0.9 0.6 (0.2-1.0) mg/dl Direct Bilirubin 0.1 (0-0.2) mg/dl AST 85 H 52 H (13-39) U/L ALT 108 H 82 H (7-52) U/L Alkaline Phosphatase 82 67 (34-104) U/L Albumin 4.5 3.8 (3.4-5.0) gm/dl Urine 12/03/24 Range/Units 21:52 Urine Color Yellow Urine Appearance Cloudy A (Clear) Urine pH 5.5 (4.5-7.5) Ur Specific [place] 1.034 H (1.000-1.030) Urine Protein 3+ H (Negative) Urine Glucose (UA) 3+ H (Negative) Medications Administered Current Inpatient Medications Acetaminophen (Acetaminophen 325 Mg Tab) 650 mg PO Q4H PRN PRN Reason: Pain or Fever Stop: 01/02/25 20:35 Last Admin: 12/04/24 07:17 Dose: 650 mg Carvedilol (Carvedilol 6.25 Mg Tab) 6.25 mg PO BIDM TON Stop: 01/03/25 07:59 Last Admin: 12/04/24 08:17 Dose: 6.25 mg Clindamycin HCl (Clindamycin Hcl 150 Mg Cap) 300 mg PO BID TON Stop: 12/10/24 20:59 Last Admin: 12/04/24 08:17 Dose: 300 mg Dextrose (Dextrose 50% 50 Ml Syringe) 25 - 50 ml IV UD PRN; Protocol PRN Reason: Hypoglycemia Protocol Stop: 01/02/25 20:35 Duloxetine HCl (Duloxetine Hcl 60 Mg Cap) 60 mg PO DAILY TON Stop: 01/03/25 08:59 Last Admin: 12/04/24 08:17 Dose: 60 mg Enoxaparin Sodium (Enoxaparin Inj 40 Mg/0.4 Ml Syr) 40 mg SQ Q24H TON Stop: 01/02/25 20:35 Last Admin: 12/03/24 21:11 Dose: 40 mg Glucagon (Glucagon For Inj 1 Mg Vial) 1 mg SQ UD PRN; Protocol PRN Reason: Hypoglycemia Protocol Stop: 01/02/25 20:35 Glucose (Glucose 40% Gel 15 Gm Tube) 15 - 30 gm PO UD PRN; Protocol PRN Reason: Hypoglycemia Protocol Stop: 01/02/25 20:35 Glucose (Glucose 10 Tab/Tube) 4 - 8 tab PO UD PRN; Protocol PRN Reason: Hypoglycemia Protocol Stop: 01/02/25 20:35 HCTZ/Losartan Potassium (Losartan/Hctz 50/12.5mg Tab) 2 tab PO QAM TON Stop: 01/03/25 08:59 Last Admin: 12/04/24 08:16 Dose: 2 tab Ceftriaxone Sodium (Rocephin) 2,000 mg in 50 mls @ 100 mls/hr IV Q24H TON Stop: 12/09/24 00:00 Last Infusion: 12/04/24 00:37 Dose: Infused Insulin Aspart (Insulin Aspart Per Unit Charge) 0 units SC ACHS TON Stop: 01/02/25 20:59 Last Admin: 12/04/24 11:50 Dose: 13 units Insulin Glargine (Lantus Per Unit Charge) 0 - 10 units SQ DAILY TON Stop: 01/03/25 08:59 Last Admin: 12/04/24 08:15 Dose: 10 units Miscellaneous (Carbohydrates For Hypoglycemia ) 15 - 30 gm PO UD PRN PRN Reason: Hypoglycemia Protocol Stop: 01/02/25 20:35 Rosuvastatin Calcium (Rosuvastatin Calcium 5 Mg Tab) 5 mg PO QAM [facility] Stop: 01/03/25 10:59 Last Admin: 12/04/24 11:50 Dose: 5 mg
--- NOTE | 2024-12-04 13:10 | Discharge Summary ---
Discharge Summary Date of Service December 04, 2024 Principal Dx & Hospital Course #1 = Principal Diagnosis (1) Hypertensive urgency: (2) Type 2 diabetes mellitus: (3) Elevated LFTs: Plan Ms. Gunderson is a 34 year old F who has a significant PMH of T2DM, HTN, HLD, SANDRA on Cpap, Morbid obesity, hx of DVT, depression, elevated LFTS who presented to ED from PCP office 2/2 to hypertensive urgency. Outpt BPs in clinic were 195/120 and 170/118 associated with CP and RAMIREZ. Head CT w/o abnormality. ECG w/o ischemic change. Troponin not evaluated in ED, but pt w/o chest pain. Echo from 2020 reviewed which showed grade 1 diastolic dysfunction, and borderline LVH, but normal EF. Outpt medical records reviewed which showed intermitted elevated SBP 130s-150s since 2016. She reports being started on losartan 25mg in September but stopped taking for 1 week. #Hypertensive urgency admitted to PCU pt with long standing hx of intermittent hypertension; however significantly elevated BPs noted in clinic yesterday in setting of not taking losartan BP remains elevated today at 182/118 Started on Losartan/HCTZ 50mg-12.5 two tablets daily, coreg 6.25mg bid likely to require multidrug regimen with adjustments to obtain goal of < 130/80 pt educated to limit caffeine, alcohol, OTC meds/supplements until BP under control She is also instructed to not start an new exercise regimen until blood pressure under control If control is not obtained with multidrug regimen she will require secondary hypertension work up as an outpt She was educated on low sodium diet and monitoring intake of heavily processed foods in form of fast food, frozen, canned or processed meats If BP reduces this afternoon will discharge to outpt with close PCP follow up Would recommend clinic obtain ambulatory blood pressure monitoring for accurate BP assessment Recommend repeat BMP and LFT as outpt with new medications #T2DM, not well controlled A1C 9, lantus/novolog per protocol Ozempic recently increased to 1mg which she started saturday she is also on metformin 1g PM, she was instructed we could increase this to twice daily, but she wishes to not make any further med adjustment with the ozempic recently adjusted Discussed with chemical educator who is going to set her up with [employer] I will write scripts #HLD #Hypertriglyceridemia Trig 477, Chol 243, HDL 33, LDL unable to be calculated due to trig elevation Will start Crestor 5mg daily, pt endorses LLE cramping so discussed slow titration of this medication to ensure compliance recommend LFT monitoring #Abnormal urinalysis #Proteinuria evidence on UA, will obtain random urine protein recommend repeat as outpt, may be in setting of hypertension would refer pt to outpt nephrology for further evaluation pt currently on empiric Rocephin awaiting urine culture #SANDRA: continue Cpap at HS #Elevated LFTS: suspect likely fatty liver infiltration given obesity and chronic co morbidities, she is not having any abd pain, recommend routine RUQ US as outpt #Right axillary hidradenitis: following general surgery, on clindamycin Had a lengthy discussion with patient regarding reducing her risk factors for developing cardiovascular disease given hx of HTN, HLD, T2DM and morbid obesity. We discussed improving her risk factors with appropriate treatment as well as weight loss. She met with tobacco educator as well who also discussed weight loss. She is encouraged to not start an exercise regimen until BP controlled. #DVT ppx: SQ Lovenox FULL CODE PCP: MELO Howell Dispo: admitted to PCU - may discharge later today if BP more controlled or later this weekend Pt was seen and examined in collaboration with , please see addendum I spent a total of 61 minutes coordinating, documenting and providing care for this patient excluding time spent in the performance of separately billed services or time spent by another provider/QHP. Notes For Next Care Provider Recommend BMP, LFT at hospital follow up. Pt did have protein in her urine. I would recommend repeat UA and if still positive refer to nephrology. IF blood pressure not controlled with current multidrug regimen it is recommended she undergo secondary hypertension work up. Would recommend ambulatory blood pressure monitoring through clinic. Recommend referral to dock builder to assist in weight loss. Please obtain RUQ US 2/2 elevated liver function. Pt was started on Crestor 5mg daily. Repeat Cholesterol panel in 3-6 months and up titrate as necessary. Medication Changes From Visit New Medications 1. Losartan 50mg/Hydrochlorothiazide 12.5mg take two tablets by mouth in the morning. Next dose due 12/05/24. This is a combination medication that combines 2 blood pressure medications in one tablet. 2. Carvedilol 6.25mg by mouth twice daily with a meal. Next dose due with Dinner on 12/04/24. 3. Rosuvastatin 5mg by mouth at bedtime. Next dose due the evening of 12/05/24. Please STOP taking your previously prescribed Losartan. Admission HPI Per Admitting Provider 34-year-old female with PMH DM type II, HTN, obesity, right axillary hidradenitis, depression, SANDRA on CPAP, and other problems to below who presents to the ED for evaluation of elevated blood pressure. Patient reports she was started on losartan 25 mg daily a few months ago. Reports that she has not been taking it for the past 1 week because she misplaced the medication. She was seen at the general surgery office yesterday for right axillary hidradenitis follow-up and was noted to have significantly elevated blood pressure. At the time, patient was asymptomatic. She was referred to her PCP for further evaluation. At the PCP's office, BP 170/118. Patient is reporting that she was experiencing some chest pain, nausea, and a headache. She was referred to the ED for further evaluation. Patient reports she otherwise has been feeling well recently. No other recent illnesses, fevers, chills. She denies abdominal pain, vomiting, diarrhea. No urinary symptoms. In the ED, patient is found to be significantly hypertensive with presenting BP 214/140. HS Troponin negative, EKG negative for acute ST changes. Head CT and CXR negative. Patient was given losartan 25 mg, labetalol 10 mg IV, hydralazine 5 mg IV. BP remains s ignificantly elevated. Admission Exam Per Admitting Provider General: Not in distress, obese Eyes: PERRL, conjunctivae normal, not pale, anicteric sclerae, EOM intact bilaterally ENMT: External ear and nose normal, oropharynx normal Respiratory: Normal respiratory effort, no respiratory distress, lungs clear to auscultation, no crackles and no wheezes Cardiovascular: RRR S1 S2 Gastrointestinal (Abdomen): Abdomen is not distended, soft, non-tender to palpation, no guarding, no palpable hepatosplenomegaly, normal bowel sounds Musculoskeletal: No pedal edema Neurologic: Alert and oriented x 3, No focal weakness, sensation grossly intact Psychiatric: Euthymic affect Discharge Exam Gen: WD/WN, F, sitting at bedside, obese, NAD, A&O x3 HEENT: Normocephalic, atraumatic, conjunctivae moist, sclerae anicteric, mucous membranes moist. Lung: Clear to Auscultation bilaterally, no wheezes/rales/rhonchi Heart: Regular rate, regular rhythm, no murmurs, rubs, or gallops Abdomen: Soft, NT, ND +BS x 4 Extremities: No edema Skin: Warm, no rash, negative turgor. Updated Medication List Medication Instructions Recorded Confirmed Type clindamycin HCl 300 mg capsule 300 mg PO BID 12/03/24 12/03/24 History duloxetine 60 mg capsule,delayed 60 mg PO DAILY 12/03/24 12/03/24 History release losartan 25 mg tablet 25 mg PO UD 12/03/24 12/03/24 History metformin 500 mg tablet,extended 1,000 mg PO DAILY 12/03/24 12/03/24 History release 24 hr semaglutide 1 mg/dose (4 mg/3 mL) 1 mg subcut WK 12/03/24 12/03/24 History subcutaneous pen injector ([employer] SolutionsempFlayr) blood sugar diagnostic (LytroTouch #50 ea 12/04/24 Rx Ultra Test strips) blood-glucose meter (Vizsafeuch #1 ea 12/04/24 Rx Ultra2 Meter) blood-glucose sensor (Conspire G7 #3 ea 12/04/24 Rx Sensor device) carvedilol 6.25 mg tablet 6.25 mg PO BIDM #60 tabs 12/04/24 Rx lancets 33 gauge (OneTouch Delica #100 ea 12/04/24 Rx Plus Lancet) losartan 50 mg-hydrochlorothiazide 2 tab PO QAM 30 days #60 tabs 12/04/24 Rx 12.5 mg tablet rosuvastatin 5 mg tablet 5 mg PO QAM #30 tabs 12/04/24 Rx Hospital Stay Data Consultations 12/03/24 16:55 ED Decision to Admit Stat Diagnostic Imagining Performed Chest X-Ray 12/03/24 13:43 XR chest 1V portable CLINICAL HISTORY: Hypertension COMPARISON STUDY: 06/09/2021 FINDINGS: Heart size and pulmonary vasculature are normal. No effusion, consolidation, or pneumothorax. IMPRESSION: No acute findings. ACT 112: Negative or not required by law. Electronically signed by: Clovis Serrato M.D. 12/03/2024 2:[address] 12/03/24 13:43 CT head/brain wo con CLINICAL HISTORY: Hypertension. TECHNIQUE: Multiple axial CT images of the head were obtained without contrast. A dose lowering technique was utilized adhering to the principles of ALARA. CT DOSE: 625.8 mGy.cm COMPARISON: 03/08/2019 FINDINGS: No intracranial hemorrhage seen. No mass effect, midline shift, or hydrocephalus. No skull fracture. Visualized paranasal sinuses and mastoid air cells are clear. IMPRESSION: No acute findings. ACT 112: Negative or not required by law. The above report was generated using voice recognition software. It may contain grammatical, syntax or spelling errors. Electronically signed by: Clovis Serrato M.D. 12/03/2024 2:28 PM Venous Doppler Study 12/03/24 13:43 EXAM: US venous doppler LE LT CLINICAL HISTORY: left calf pain TECHNIQUE: Ultrasound examination of left lower extremity veins was performed in real time and duplex. One or more of the following were performed- spectral analysis, resistive index, waveform analysis, and pulsed Doppler. COMPARISON: None. FINDINGS: Normal phasic, non-pulsatile, and spontaneous flow is noted in the left common femoral, superficial femoral, popliteal, anterior and posterior tibial and peroneal veins. Visualized veins of left lower extremity demonstrate normal compressibility. No sonographic evidence of acute deep vein thrombosis (DVT) is detected in the visualized veins of lower extremity. Compression and Augmentation: All evaluated veins compress fully with applied transducer pressure. Augmentation of venous flow is noted with distal compression. Additional Findings: No evidence of intraluminal thrombus. IMPRESSION: No sonographic evidence of acute DVT was detected in the left lower extremity veins at the time of examination. Disclaimer: DVT could be missed early in the disease when clot burden is minimal. For patients with moderate and high pretest probability of DVT and negative ultrasound, the [employer] clinical guidelines recommend testing with a D-dimer assay or repeat ultrasound in 5-7 days. If symptoms worsen, the Society of radiologists in ultrasound recommends repeating ultrasound even earlier. Electronically signed by Erich Murphy 12-03-2024 7:24 PM Pending Results Patient Have Any Pending Studies at Discharge: Yes (urine culture) Discharge Instructions Given to Patient (Per Discharging Provider) MEDICATION CHANGES: New Medications 1. Losartan 50mg/Hydrochlorothiazide 12.5mg take two tablets by mouth in the morning. Next dose due 12/05/24. This is a combination medication that combines 2 blood pressure medications in one tablet. 2. Carvedilol 6.25mg by mouth twice daily with a meal. Next dose due with Dinner on 12/04/24. 3. Rosuvastatin 5mg by mouth at bedtime. Next dose due the evening of 12/05/24. Please STOP taking your previously prescribed Losartan. SUMMARY OF TEST RESULTS: Ms. Gunderson, You were admitted to the hospital due to severely elevated blood pressure. You were started on a 3 total blood pressure medications. One of the medications is a combination pill that has 2 medications in one tablet. It will take some time to lower your blood pressure. You were found to have an A1C of 9.0. Your triglycerides and cholesterol were also elevated. It is strongly recommended you have close outpatient follow up to get your blood pressure under better control as well as improve your other medical conditions, like diabetes and high cholesterol. Your liver enzymes were mildly elevated. It is recommended that you have repeat blood work at your hospital follow up. PENDING TEST RESULTS: Final urine culture RECOMMENDATIONS FOR FOLLOW-UP: Please follow up with primary care provider as scheduled. Please take all new medications as prescribed to help lower your blood pressure. It is recommended that you monitor your blood pressure twice daily, first thing in the morning and a random time in the afternoon. Please keep a log of these blood pressures to take with you to your primary care provider appointment. I would recommend talking to Idalmis Howell PA-C about setting you up for ambulatory blood pressure monitoring that connects to your phone. If your blood pressure increases and remains > 180 mmHg please return to the PCP. Especially if it is accompanied with chest pain, headache or shortness of breath. It is recommended you have repeat blood work at your follow up appointment to monitor your kidney functions, electrolytes and liver functions. It is recommended you have your cholesterol level rechecked in 3-6 months. It is very likely you may need to increase your cholesterol medication; however to limit side effects we have started you on a lower dose. It is recommended you try to lose weight. I would recommend following a low fat diet. Your Primary Care Provider can refer you to a dock builder through [employer] to help with this. OTHER INSTRUCTIONS: Seek medical attention if you have: * temperature above 101 * chest pain or trouble breathing * abdominal pain, nausea, vomiting * diarrhea, dark stools or bloody stools * any unanswered questions or concerns Call 911 if symptoms are severe. Please take good care of yourself. It has been a pleasure taking care of you. Please take care of yourself. If you have any questions regarding your recent hospitalization please contact [facility] and request Tootie Faulkner @ [phone]. Total Time Total Time Spent Total Time Spent (In Minutes): 65 minutes Supervising Physician Co-Signing Physician Notes I have reviewed the advanced practitioner's documentation, and I agree with, and take responsibility for the plan of care I spent a total of 20 minutes coordinating, documenting, and providing care for this patient excluding time spent in the performance of separately billed services. All of the aforementioned completed while collaborating with the assigned advanced practitioner for a full treatment plan
[2024-12-04 15:23] VITALS: BP 158/99; PULSE 87; RESP 20; TEMP 98.1; O2SAT 95
== END 2024-12-04 17:11 | disposition home or self-care (01) | DRG 305 ==
LOC: ED 12:02 → INTOOBSV 17:15 → 2S 17:15 → SUATTDRO 17:15 → 2S 20:16